=== PATIENT | female | born 1940 | race Caucasian/White ===

== ENCOUNTER 2017-06-29 04:52 | Emergency (ER) | payer OTHER ==
[~2017-06-29] VITALS: Ht 165.1 cm; Wt 66.0 kg
[~2017-06-29 04:52] MED LIST: ROPI1TAB PO; SIMV40TA2 PO
[2017-06-29 04:54] VITALS: BP 120/71; PULSE 79; TEMP 36.6; O2SAT 97; Ht 165.1 cm; Wt 66.0 kg
[2017-06-29] MEDS ORDERED: OXYCODONE/ACETAMINOPHEN 5-325 TAB PO ONE (05:15)
[2017-06-29] MEDS ORDERED: PERCOCET HOME PACK PO ONE (06:00)
--- NOTE | 2017-06-29 06:08 | EMERGENCY ROOM VISIT NOTE ---
History Report prepared by Joseph: Althea Kc Under the Supervision of: Dr. Annemarie Smith D.O. First contact with patient: 05:01 Chief Complaint: ANKLE PAIN Stated Complaint: TRIPPED- HURT LEFT ANKLE History of Present Illness The patient is a 76 year old female who presents to the Emergency Room with complaints of persistent left ankle pain starting 9512-8557 last evening. The patient was walking her 75 lb dog when the dog started running away from her. She was pulled forward and fell to the ground. She reports pain on the outer side of her foot and ankle and in the arch of her foot. The pain worsens with weight bearing. She has taken Tylenol arthritis and tramadol for her pain. She denies any head injury. She denies any pain in her knees, hands, elbows, right ankle, neck, abdomen, or hip. Source of History: patient Onset: [id number] yesterday evening Position: ankle (left) Quality: other (pain) Timing: other (persistent) Modifying Factors (Worsening): other (weight bearing) Associated Symptoms: No neck pain, No abdominal pain Note: Pt reports left foot pain. Pt denies knee pain, hand pain, elbow pain, right ankle pain, hip pain. Review of Systems See HPI for pertinent positives & negatives. A total of 10 systems reviewed and were otherwise negative. Past Medical & Surgical Medical Problems: (1) No Known Active Medical Problems (2) Shingles Family History Cancer Social History Smoking Status: Never Smoker Alcohol Use: none Marital Status: Housing Status: lives with significant other Current/Historical Medications Scheduled Ropinirole (Requip), 1 MG PO TID Simvastatin (Zocor), 40 MG PO QPM Allergies Coded Allergies: Penicillins (Verified Allergy, Intermediate, RASH, 06/29/17) Physical Exam Vital Signs Date Time Temp Pulse Resp B/P (MAP) Pulse Ox O2 Delivery O2 Flow Rate FiO2 06/29/17 04:54 36.6 79 20 120/71 97 Room Air Physical Exam HEENT: Head - normocephalic and atraumatic. Pupils are equal, round, and reactive to light. Extraocular eye muscles are intact and sclera are anicteric. Nose - moist nasal mucosa without evidence of trauma or discharge. Mouth - moist buccal mucosa with no trauma to the teeth or signs of malocclusion. Neck: The neck is supple and there is no pain to palpation over the posterior cervical spine and no obvious step-offs or deformities. There is no JVD or tracheal deviation. Chest: There are no signs of deformities, contusions or abrasions to the chest wall. There is no obvious crepitus or paradoxical chest rise. Heart: Regular, rate, and rhythm. There is a normal S1 and S2 with no murmurs, clicks, or gallops appreciated. Lungs: Clear to auscultation bilaterally with no wheezes, rales, or rhonchi. Abdomen: Soft, completely nontender, nondistended, with good bowel sounds. There is no sign of trauma such as contusions, abrasions or penetrations. There are no palpable pulsatile masses or hepatosplenomegaly. There is no guarding, rigidity, or rebound noted. Pelvis: Stable to rock and compression. Extremities: Edema over the left lateral malleolus, some discomfort with palpation over the 5th metatarsal, no pain over the left knee, no obvious signs of trauma. There are easily palpable peripheral pulses. Neuro: The patient is awake and alert and easily able to follow commands. Otherwise, neuro exam is unremarkable. Back: The entire thoracic, lumbar, and sacral spine were palpated. There are no obvious step-offs or deformities noted. There are no obvious signs of trauma such as contusions abrasions penetrations noted to the back. Medical Decision & Procedures ER Provider Diagnostic Interpretation: X-ray results as stated below per interpretation by me: Left foot X-ray: No 5th metatarsal fracture. Left ankle X-ray: No obvious ankle fracture. Medications Administered Medications (Trade) Dose Ordered Sig/[facility] Route Start Time Stop Time Status Last Admin Dose Admin Oxycodone/ Acetaminophen (Percocet 5-325mg Tab) 1 tab NOW ONCE PO 06/29/17 05:15 06/29/17 05:16 DC 06/29/17 05:22 1 TAB Oxycodone/ Acetaminophen (Percocet 5/ 325MG Home Pack) 1 homepack UD ONCE PO 06/29/17 06:00 06/29/17 06:01 DC 06/29/17 06:08 1 HOMEPACK Procedure Medications: Oxycodone/Acetaminophen 1 tab PO, Oxycodone/Acetaminophen 1 homepack PO. ED Course 0506: The patient was evaluated in room A2. A complete history and physical examination were performed. Nursing notes and previous electronic medical records were reviewed. 0515: Oxycodone/Acetaminophen 1 tab PO. The patient went for plain films of the left foot and ankle as described above. 0549: Upon reevaluation, the patient is doing well. She will get a gel splint and already has crutches in the room. I discussed findings and results with her. She verbalized agreement of the treatment plan. She was discharged home. 0600: Oxycodone/Acetaminophen 1 homepack PO. Medical Decision The patient is a 76 year old female who presents to the ED with ankle pain. Differential diagnosis includes ankle sprain, ankle fracture, 5th metatarsal fracture. The patient has pain over the left lateral malleolus. An x-ray, there is arthritic changes with a questionable chip fracture at the tip of the fibula. However, the patient has been walking on that foot so the fracture is unlikely. She was placed in a gel splint and will use her crutches at home. She was given a Percocet home pack and encouraged to follow-up with her PCP if the pain persists. Medication Reconcilliation Current Medication List: was personally reviewed by me Blood Pressure Screening Patient's blood pressure: Normal blood pressure Blood pressure disposition: Did not require urgent referral Impression Primary Impression: Left ankle sprain Scribe Attestation The scribe's documentation has been prepared under my direction and personally reviewed by me in its entirety. I confirm that the note above accurately reflects all work, treatment, procedures, and medical decision making performed by me. Departure Information Dispostion Home / Self-Care Referrals No Doctor, Assigned (PCP) Forms HOME CARE DOCUMENTATION FORM, IMPORTANT VISIT INFORMATION Patient Instructions Ankle Sprain, My [facility] Document [employer] Additional Instructions Rest with the left foot elevated and iced. Percocet - 1 tab. every 4 hours for pain. Use splint when up walking. Use crutches to avoid weight-bearing over next 1-2 days Follow up with PCP if pain persists Problem Qualifiers Primary Impression: Left ankle sprain Encounter type: initial encounter Involved ligament of ankle: deltoid ligament Qualified Codes: S93.422A - Sprain of deltoid ligament of left ankle , initial encounter
--- NOTE | 2017-06-29 07:05 | DIAGNOSTIC IMAGING REPORT ---
LEFT ANKLE MIN 3 VIEWS ROUTINE, LEFT FOOT MIN 3 VIEWS ROUTINE HISTORY: 76 years-old Female acute left foot and ankle pain status post twisting injury. Initial exam. COMPARISON: None available TECHNIQUE: 3 views of the left ankle and 3 views of the left foot FINDINGS: ANKLE: Bones are mildly demineralized without acute fracture or dislocation. There is moderate spurring about the calcaneus with mild spurring of the dorsal talonavicular joint. Small joint effusion is noted with mild circumferential soft tissue swelling about the ankle. FOOT: Bones are mildly demineralized. Moderate first MTP joint and multidigit interphalangeal degenerative changes are noted. No acute fracture or dislocation is identified. Prominent spurring is noted about the calcaneus. No stress fracture. There is mild dorsal forefoot soft tissue swelling. IMPRESSION: 1. Mild circumferential ankle and mild dorsal forefoot soft tissue swelling without acute fracture or dislocation. 2. Degenerative changes about the hindfoot and forefoot as above. 3. Mild bone demineralization. The above report was generated using voice recognition software. It may contain grammatical, syntax or spelling errors. Electronically signed by: Jorge Luis Garcia M.D. 06/29/2017 7:04 AM Dictated Date/Time: 06/29/2017 7:00 AM
== END 2017-06-29 06:10 | disposition home or self-care (01) ==
LOC: C.EDB 04:53 → C.EDA 06:10
DX: S93.422A Sprain of deltoid ligament of left ankle, initial encounter (principal); X50.1XXA Overexertion from prolonged static or awkward postures, initial encounter; Y93.K1 Activity, walking an animal; Y99.8 Other external cause status

== ENCOUNTER 2022-02-09 09:56 | Inpatient (IN) ==
--- NOTE | 2022-02-09 10:37 | Emergency Department Note ---
Impression & Plan BALLARD (dyspnea on exertion), Iron deficiency anemia, Fluid overload ED Provider Note Provider: Agustin Whitaker MD DATE OF SERVICE: 02/09/2022 CHIEF COMPLAINT: Fatigue, cough, referred by HISTORY OF PRESENT ILLNESS: Patient is a 81-year-old female history of restless leg syndrome, Aguila's palsy, gastric ulcers, and shingles presenting here today referred from the outpatient clinic. Patient states over the past week or so she has developed a bit of a cough and her 's been sick with similar as well. Minimally productive. Some fatigue. She states this has improved her last several days and she was at her doctor's office. Seen on Saturday and started on doxycycline. Had blood work and imaging that as well. Chest x-ray question of a little bit of pulmonary vascular congestion with findings concerning for significant new anemia. Patient denies any bleeding at this time or any bloody or black stools. Patient states she has recently been started on iron supplements. does report that the patient seems a bit pale. Reports some dyspnea on exertion such as with stairs although she states this may be a little bit better over the last day or 2. Denies any stomach upset or pain. Distant history of gastric ulcers but not currently on any stomach medication per her report. REVIEW OF SYSTEMS: A total of 10 review of systems was obtained and negative except as stated above in the HPI. PAST MEDICAL HISTORY: As noted above MEDICATIONS: Reviewed home medication list SOCIAL HISTORY: Lives at home, non-smoker PHYSICAL EXAM: GENERAL: alert and oriented in no acute distress on stretcher Head: normocephalic and atraumatic EYES: No injection, discharge or icterus. Slightly pale NECK: Trachea midline. LUNGS: Airway patent. No retractions. Breath sounds clear with good air entry bilaterally. HEART: Regular rate and rhythm. No chest wall tenderness ABDOMEN: Soft and non-tender, without guarding or rebound. No hepatosplenomegaly or masses Rectal: With patient permission and nurse Mary at bedside rectal exam completed with no bloody or melanotic stools. No large hemorrhoids appreciated. Hemoccult negative brown stool. SKIN: Acyanotic slightly pale warm, dry, without rashes EXTREMITIES: Without tenderness or deformity with trace pedal edema. NEUROLOGICAL: No focal deficits. No aphasia. No facial droop or slurred speech. Ambulatory. EK bpm normal sinus rhythm with left bundle branch block. QTc 473. Comparison to previous from May 11, 2016, similar CONTINUOUS CARDIAC MONITORING: was ordered and showed a heart rate of 70s-80s bpm in normal sinus rhythm with left bundle branch block Patient's laboratory studies and imaging reviewed. Differential includes Infection, dehydration, metabolic abnormality, hypo/hyperglycemia, electrolyte disturbance, anemia, hypoxia, cardiac sources, intracerebral event, toxicologic, neurologic, as well as other pathologies. IMPRESSION/MEDICAL DECISION MAKING: Review of the [facility] medical record indicate normal hemoglobin of 13 in 2015 on labs and 10.2 in 2016. No repeat hemoglobin since then other than recent last week which was 7.4. Denies bloody stools and relates a history of gastric ulcer. Not having ulcer symptoms. Hemoccult negative here on exam. Denies bruising or bleeding but does note she seems a bit pale. Outpatient chest xray with pulmonary vascular congestion reported from several days ago on the not as impressive here per our radiology report. Benign abdomen. Mild hypokalemia with a sodium of 3.2. Normal renal function. EKG appears unchanged but high-sensitivity troponin was completed. No bilirubin or AST ALT elevation noted with a borderline alk phos of 109. BUN not elevated. Doubt GI bleed. CBC returns with a white blood cell count of 13.2 and hemoglobin of 8.1. Patient does not appear septic. Not significantly hypoxic at this time. P latelet count 623 noted. Patient has been on doxycycline for 3 days in the outpatient setting but do not see clear evidence of pneumonia based on the imaging. High-sensitivity troponin is slightly elevated at 15. Question if this may be related to some of her anemia although anemia does appear somewhat improved today compared to outpatient several days ago. Patient without active chest pain. Low suspicion at this time this represents PE. Has been wearing compression stockings question of some component of heart. May be at play. BNP was ordered and will challenge with a small amount of Lasix. BMP later returned significantly elevated. Desaturates with ambulation in the room into the mid 80s. Given this discussed with the patient further evaluation and work-up here at the hospital. Hospitalist team was contacted. DIAGNOSIS: Iron deficiency anemia, dyspnea on exertion with hypoxia, fluid overload DISPOSITION: Hospitalist will evaluate Patient was agreeable with this plan. Past Med/Surg History Social History (Reviewed 06/01/21 @ 10:51 by FANY Erazo Smoking Status: Never smoker Preferred Language: Ugandan Feels Safe at Home: Yes Allergies Allergies Allergy/AdvReac Type Severity Reaction Status Date / Time Penicillins Allergy Intermediate RASH Verified 02/09/22 11:10 Home Meds Home Medications Medication Instructions Recorded Confirmed doxycycline monohydrate 100 mg 100 mg PO BID 02/09/22 02/09/22 tablet ferrous sulfate 325 mg (65 mg 325 mg PO Q2D 02/09/22 02/09/22 iron) tablet gabapentin 100 mg capsule 200 mg PO HS 02/09/22 02/09/22 gabapentin 300 mg capsule 300 mg PO HS 02/09/22 02/09/22 lisinopril 5 mg tablet 5 mg PO DAILY 02/09/22 02/09/22 ropinirole 3 mg tablet 3 mg PO TID 02/09/22 02/09/22 Results & Data (ED) Vital Signs Vital Signs - 24 hr 02/09/22 10:07 02/09/22 10:25 02/09/22 10:26 Temperature 36.3 C L Temperature Source Temporal Artery Scan Pulse Rate 73 81 Pulse Rate [Apical] Pulse Rate [Recovery] Pulse Rate from SpO2 Sensor 77 Pulse Rhythm Regular Pulse Strength Normal Respiratory Rate 20 30 H Respiratory Rate [Recovery] Respiratory Effort / Characteristics Non-Labored Spontaneous Respiratory Depth Normal Respiratory Pattern Regular Blood Pressure 170/77 H 164/68 H Blood Pressure [Right Arm] Blood Pressure Mean 108 100 Blood Pressure Mean [Right Arm] Blood Pressure Position Sitting Pulse Oximetry 95 94 Pulse Oximetry [Recovery] Oxygen Delivery Method Room Air Oxygen Flow Rate Sepsis Recent Fever Within 48 Hours No Sepsis New/Unexplained Change in Mental Status N/A Sepsis Action Taken by Nursing No Action Required 02/09/22 10:31 02/09/22 10:38 02/09/22 10:39 Temperature Temperature Source Pulse Rate 89 82 Pulse Rate [Apical] 78 Pulse Rate [Recovery] Pulse Rate from SpO2 Sensor 87 Pulse Rhythm Pulse Strength Respiratory Rate 24 20 20 Respiratory Rate [Recovery] Respiratory Effort / Characteristics Non-Labored Spontaneous Respiratory Depth Normal Respiratory Pattern Regular Blood Pressure Blood Pressure [Right Arm] 164/68 H Blood Pressure Mean Blood Pressure Mean [Right Arm] 100 Blood Pressure Position Pulse Oximetry 93 94 93 Pulse Oximetry [Recovery] Oxygen Delivery Method Room Air Room Air Oxygen Flow Rate Sepsis Recent Fever Within 48 Hours Sepsis New/Unexplained Change in Mental Status Sepsis Action Taken by Nursing 02/09/22 11:00 02/09/22 11:30 02/09/22 12:00 Temperature Temperature Source Pulse Rate 75 71 73 Pulse Rate [Apical] Pulse Rate [Recovery] Pulse Rate from SpO2 Sensor 74 Pulse Rhythm Pulse Strength Respiratory Rate 22 21 20 Respiratory Rate [Recovery] Respiratory Effort / Characteristics Respiratory Depth Respiratory Pattern Blood Pressure 167/69 H 168/70 H 180/72 H Blood Pressure [Right Arm] Blood Pressure Mean 101 102 108 Blood Pressure Mean [Right Arm] Blood Pressure Position Pulse Oximetry 98 Pulse Oximetry [Recovery] Oxygen Delivery Method Oxygen Flow Rate Sepsis Recent Fever Within 48 Hours Sepsis New/Unexplained Change in Mental Status Sepsis Action Taken by Nursing 02/09/22 12:24 02/09/22 12:30 02/09/22 13:00 Temperature Temperature Source Pulse Rate 73 80 Pulse Rate [Apical] Pulse Rate [Recovery] 77 Pulse Rate from SpO2 Sensor Pulse Rhythm Pulse Strength Respiratory Rate 18 22 Respiratory Rate [Recovery] 24 Respiratory Effort / Characteristics Respiratory Depth Respiratory Pattern Blood Pressure 177/83 H 189/88 H Blood Pressure [Right Arm] Blood Pressure Mean 114 121 Blood Pressure Mean [Right Arm] Blood Pressure Position Pulse Oximetry 97 Pulse Oximetry [Recovery] 87 L Oxygen Delivery Method Room Air Nasal Cannula Oxygen Flow Rate 1.5 Sepsis Recent Fever Within 48 Hours Sepsis New/Unexplained Change in Mental Status Sepsis Action Taken by Nursing 02/09/22 13:30 02/09/22 13:56 02/09/22 14:00 Temperature Temperature Source Pulse Rate 73 83 79 Pulse Rate [Apical] Pulse Rate [Recovery] Pulse Rate from SpO2 Sensor 83 Pulse Rhythm Pulse Strength Respiratory Rate 22 19 24 Respiratory Rate [Recovery] Respiratory Effort / Characteristics Respiratory Depth Respiratory Pattern Blood Pressure 190/78 H 198/83 H 191/85 H Blood Pressure [Right Arm] Blood Pressure Mean 115 121 120 Blood Pressure Mean [Right Arm] Blood Pressure Position Pulse Oximetry 97 Pulse Oximetry [Recovery] Oxygen Delivery Method Oxygen Flow Rate Sepsis Recent Fever Within 48 Hours Sepsis New/Unexplained Change in Mental Status Sepsis Action Taken by Nursing Laboratory Data Result diagrams: 02/09/22 10:18 02/09/22 10:18 Lab Results 02/09/22 02/09/22 02/09/22 Range/Units 10:18 10:18 10:18 WBC 13.25 H (4.8-10.8) K/uL RBC 3.89 L (4.2-5.4) M/uL Hgb 8.1 L (12.0-16.0) g/dL Hct 30.0 L (37-47) % MCV 77.1 L (80-100) fL MCH 20.8 L (25-34) pg MCHC 27.0 L (32-36) g/dL RDW Std Deviation 62.2 H (36.4-46.3) fL RDW Coeff of Francia 22.3 H (11.5-14.5) % Plt Count 623 H (130-400) K/uL MPV 8.9 (7.4-10.4) fL Immature Gran % (Auto) 0.4 % Neut % (Auto) 78.5 % Lymph % (Auto) 15.2 % [place] % (Auto) 4.6 % Eos % (Auto) 1.1 % Baso % (Auto) 0.2 % Neut # (Auto) 10.40 H (1.4-6.5) K/uL Lymph # (Auto) 2.01 (1.2-3.4) K/uL [place] # (Auto) 0.61 H (0.11-0.59) K/uL Eos # (Auto) 0.15 (0-0.5) K/uL Baso # (Auto) 0.03 (0-0.2) K/uL Immature Gran # (Auto) 0.05 H (0.00-0.02) K/uL Hypochromasia Present Anisocytosis Present Microcytosis Present PT (9.0-12.0) Seconds INR (0.9-1.1) Sodium (136-145) mmol/L Potassium (3.5-5.1) mmol/L Chloride (98-107) mmol/L Carbon Dioxide (21-32) mmol/L Anion Gap (3-11) BUN (6-23) mg/dl Creatinine (0.6-1.2) mg/dl Est Cr Clr Drug Dosing ml/min Est GFR ( Amer) ml/min Est GFR (Non-Af Amer) ml/min BUN/Creatinine Ratio (10-20) Glucose (70-99(Fasting)) mg/dl Calcium (8.5-10.1) mg/dl Magnesium (1.7-2.4) mg/dl Iron 13 L (35-150) mcg/dl Ferritin 17.7 (8-388) ng/ml Total Bilirubin (0.2-1.0) mg/dl AST (13-39) U/L ALT (7-52) U/L Alkaline Phosphatase (34-104) U/L Troponin I High Sens 15.7 H (0-14) pg/ml B-Natriuretic Peptide (0-100) pg/ml Total Protein (6.0-8.3) gm/dl Albumin (3.4-5.0) gm/dl Globulin (2.5-4.0) gm/dl Albumin/Globulin Ratio (0.9-2) TSH (0.300-4.500) uIu/ml Urine Color Urine Appearance (Clear) Urine pH (4.5-7.5) Ur Specific Artie (1.000-1.030) Urine Protein (Negative) Urine Glucose (UA) (Negative) Urine Ketones (Negative) Urine Blood (Negative) Urine Nitrite (Negative) Urine Bilirubin (Negative) Urine Urobilinogen (Negative) Ur Leukocyte Esterase (Negative) SARS-CoV-2, RNA, NAAT (NEGATIVE) Blood Type O Positive Blood Type Recheck Antibody Screen NEGATIVE Crossmatch 02/09/22 02/09/22 02/09/22 Range/Units 10:18 10:18 10:18 WBC (4.8-10.8) K/uL RBC (4.2-5.4) M/uL Hgb (12.0-16.0) g/dL Hct (37-47) % MCV (80-100) fL MCH (25-34) pg MCHC (32-36) g/dL RDW Std Deviation (36.4-46.3) fL RDW Coeff of Francia (11.5-14.5) % Plt Count (130-400) K/uL MPV (7.4-10.4) fL Immature Gran % (Auto) % Neut % (Auto) % Lymph % (Auto) % [place] % (Auto) % Eos % (Auto) % Baso % (Auto) % Neut # (Auto) (1.4-6.5) K/uL Lymph # (Auto) (1.2-3.4) K/uL [place] # (Auto) (0.11-0.59) K/uL Eos # (Auto) (0-0.5) K/uL Baso # (Auto) (0-0.2) K/uL Immature Gran # (Auto) (0.00-0.02) K/uL Hypochromasia Anisocytosis Microcytosis PT 11.2 (9.0-12.0) Seconds INR 1.1 (0.9-1.1) Sodium 138 (136-145) mmol/L Potassium 3.2 L (3.5-5.1) mmol/L Chloride 102 (98-107) mmol/L Carbon Dioxide 28 (21-32) mmol/L Anion Gap 8 (3-11) BUN 8 (6-23) mg/dl Creatinine 0.82 (0.6-1.2) mg/dl Est Cr Clr Drug Dosing 48.4 ml/min Est GFR ( Amer) 77.8 ml/min Est GFR (Non-Af Amer) 67.1 ml/min BUN/Creatinine Ratio 9.8 L (10-20) Glucose 131 H (70-99(Fasting)) mg/dl Calcium 9.0 (8.5-10.1) mg/dl Magnesium 1.8 (1.7-2.4) mg/dl Iron (35-150) mcg/dl Ferritin (8-388) ng/ml Total Bilirubin 0.4 (0.2-1.0) mg/dl AST 11 L (13-39) U/L ALT 6 L (7-52) U/L Alkaline Phosphatase 109 H (34-104) U/L Troponin I High Sens (0-14) pg/ml B-Natriuretic Peptide (0-100) pg/ml Total Protein 7.7 (6.0-8.3) gm/dl Albumin 4.0 (3.4-5.0) gm/dl Globulin 3.7 (2.5-4.0) gm/dl Albumin/Globulin Ratio 1.1 (0.9-2) TSH 1.519 (0.300-4.500) uIu/ml Urine Color Urine Appearance (Clear) Urine pH (4.5-7.5) Ur Specific Artie (1.000-1.030) Urine Protein (Negative) Urine Glucose (UA) (Negative) Urine Ketones (Negative) Urine Blood (Negative) Urine Nitrite (Negative) Urine Bilirubin (Negative) Urine Urobilinogen (Negative) Ur Leukocyte Esterase (Negative) SARS-CoV-2, RNA, NAAT (NEGATIVE) Blood Type Blood Type Recheck Antibody Screen Crossmatch 02/09/22 02/09/22 02/09/22 Range/Units 10:40 10:40 12:23 WBC (4.8-10.8) K/uL RBC (4.2-5.4) M/uL Hgb (12.0-16.0) g/dL Hct (37-47) % MCV (80-100) fL MCH (25-34) pg MCHC (32-36) g/dL RDW Std Deviation (36.4-46.3) fL RDW Coeff of Francia (11.5-14.5) % Plt Count (130-400) K/uL MPV (7.4-10.4) fL Immature Gran % (Auto) % Neut % (Auto) % Lymph % (Auto) % [place] % (Auto) % Eos % (Auto) % Baso % (Auto) % Neut # (Auto) (1.4-6.5) K/uL Lymph # (Auto) (1.2-3.4) K/uL [place] # (Auto) (0.11-0.59) K/uL Eos # (Auto) (0-0.5) K/uL Baso # (Auto) (0-0.2) K/uL Immature Gran # (Auto) (0.00-0.02) K/uL Hypochromasia Anisocytosis Microcytosis PT (9.0-12.0) Seconds INR (0.9-1.1) Sodium (136-145) mmol/L Potassium (3.5-5.1) mmol/L Chloride (98-107) mmol/L Carbon Dioxide (21-32) mmol/L Anion Gap (3-11) BUN (6-23) mg/dl Creatinine (0.6-1.2) mg/dl Est Cr Clr Drug Dosing ml/min Est GFR ( Amer) ml/min Est GFR (Non-Af Amer) ml/min BUN/Creatinine Ratio (10-20) Glucose (70-99(Fasting)) mg/dl Calcium (8.5-10.1) mg/dl Magnesium (1.7-2.4) mg/dl Iron (35-150) mcg/dl Ferritin (8-388) ng/ml Total Bilirubin (0.2-1.0) mg/dl AST (13-39) U/L ALT (7-52) U/L Alkaline Phosphatase (34-104) U/L Troponin I High Sens (0-14) pg/ml B-Natriuretic Peptide (0-100) pg/ml Total Protein (6.0-8.3) gm/dl Albumin (3.4-5.0) gm/dl Globulin (2.5-4.0) gm/dl Albumin/Globulin Ratio (0.9-2) TSH (0.300-4.500) uIu/ml Urine Color Yellow Urine Appearance Clear (Clear) Urine pH 6.5 (4.5-7.5) Ur Specific Artie 1.006 (1.000-1.030) Urine Protein Negative (Negative) Urine Glucose (UA) Negative (Negative) Urine Ketones Negative (Negative) Urine Blood Negative (Negative) Urine Nitrite Negative (Negative) Urine Bilirubin Negative (Negative) Urine Urobilinogen Negative (Negative) Ur Leukocyte Esterase Negative (Negative) SARS-CoV-2, RNA, NAAT (NEGATIVE) Blood Type Blood Type Recheck O Positive Antibody Screen Crossmatch See Detail 02/09/22 02/09/22 Range/Units 13:10 14:00 WBC (4.8-10.8) K/uL RBC (4.2-5.4) M/uL Hgb (12.0-16.0) g/dL Hct (37-47) % MCV (80-100) fL MCH (25-34) pg MCHC (32-36) g/dL RDW Std Deviation (36.4-46.3) fL RDW Coeff of Francia (11.5-14.5) % Plt Count (130-400) K/uL MPV (7.4-10.4) fL Immature Gran % (Auto) % Neut % (Auto) % Lymph % (Auto) % [place] % (Auto) % Eos % (Auto) % Baso % (Auto) % Neut # (Auto) (1.4-6.5) K/uL Lymph # (Auto) (1.2-3.4) K/uL [place] # (Auto) (0.11-0.59) K/uL Eos # (Auto) (0-0.5) K/uL Baso # (Auto) (0-0.2) K/uL Immature Gran # (Auto) (0.00-0.02) K/uL Hypochromasia Anisocytosis Microcytosis PT (9.0-12.0) Seconds INR (0.9-1.1) Sodium (136-145) mmol/L Potassium (3.5-5.1) mmol/L Chloride (98-107) mmol/L Carbon Dioxide (21-32) mmol/L Anion Gap (3-11) BUN (6-23) mg/dl Creatinine (0.6-1.2) mg/dl Est Cr Clr Drug Dosing ml/min Est GFR ( Amer) ml/min Est GFR (Non-Af Amer) ml/min BUN/Creatinine Ratio (10-20) Glucose (70-99(Fasting)) mg/dl Calcium (8.5-10.1) mg/dl Magnesium (1.7-2.4) mg/dl Iron (35-150) mcg/dl Ferritin (8-388) ng/ml Total Bilirubin (0.2-1.0) mg/dl AST (13-39) U/L ALT (7-52) U/L Alkaline Phosphatase (34-104) U/L Troponin I High Sens (0-14) pg/ml B-Natriuretic Peptide 454 H (0-100) pg/ml Total Protein (6.0-8.3) gm/dl Albumin (3.4-5.0) gm/dl Globulin (2.5-4.0) gm/dl Albumin/Globulin Ratio (0.9-2) TSH (0.300-4.500) uIu/ml Urine Color Urine Appearance (Clear) Urine pH (4.5-7.5) Ur Specific Artie (1.000-1.030) Urine Protein (Negative) Urine Glucose (UA) (Negative) Urine Ketones (Negative) Urine Blood (Negative) Urine Nitrite (Negative) Urine Bilirubin (Negative) Urine Urobilinogen (Negative) Ur Leukocyte Esterase (Negative) SARS-CoV-2, RNA, NAAT NEGATIVE (NEGATIVE) Blood Type Blood Type Recheck Antibody Screen Crossmatch Administered Medications Discontinued Medications Potassium Chloride (Potassium Chloride Crtab 20 Meq Tabcr) 20 meq PO NOW STA Stop: 02/09/22 11:18 Last Admin: 02/09/22 11:56 Dose: 20 meq Documented by: [id number] Imaging Data Radiologist's Impression: Chest X-Ray 02/09/22 10:26 SINGLE VIEW CHEST CLINICAL HISTORY: Generalized weakness. FINDINGS: An AP, portable, upright chest radiograph is compared to study dated 05/11/2016. The heart is top normal for projection noting atherosclerotic calcification of the thoracic aorta. There is a large hiatal hernia. Chronic residual thickening is similar to previous. Scarring/atelectasis is seen at the lung bases. No airspace consolidation or large pleural effusion is identified. No pneumothorax is seen. The skeletal structures are osteopenic. The bony thorax is grossly intact. IMPRESSION: 1. Chronic interstitial thickening with no acute cardiopulmonary abnormality. 2. Large hiatal hernia. ACT 112: Negative or not required by law. Electronically signed by: Armando Curry M.D. 02/09/2022 10:44 AM Discharge Plan Visit Data Chief Complaint: Abnormal Labs/Diagnostic Testing Stated Complaint: BLOOD LEVEL LOW, REF BY DOC ED Provider: Agustin Whitaker Discharge Problem: BALLARD (dyspnea on exertion), Iron deficiency anemia, Fluid overload Patient Disposition: Being Evaluated by Hospitalist Forms Stand Alone Forms: My [facility] [place] ETHERA Prescriptions Prescriptions: No Action ropinirole 3 mg tablet 3 mg PO TID RF: 0 doxycycline monohydrate 100 mg tablet 100 mg PO BID RF: 0 gabapentin 300 mg capsule 300 mg PO HS RF: 0 lisinopril 5 mg tablet 5 mg PO DAILY RF: 0 gabapentin 100 mg capsule 200 mg PO HS RF: 0 ferrous sulfate 325 mg (65 mg iron) Tablet 325 mg PO Q2D RF: 0 Referrals Referrals: Jolanta Fermin PA-C [Primary Care Provider] -
--- NOTE | 2022-02-09 10:47 | XRay Report ---
SINGLE VIEW CHEST CLINICAL HISTORY: Generalized weakness. FINDINGS: An AP, portable, upright chest radiograph is compared to study dated 05/11/2016. The heart i s top normal for projection noting atherosclerotic calcification of the thoracic aorta. There is a la rge hiatal hernia. Chronic residual thickening is similar to previous. Scarring/atelectasis is seen a t the lung bases. No airspace consolidation or large pleural effusion is identified. No pneumothorax is seen. The skeletal structures are osteopenic. The bony thorax is grossly intact. IMPRESSION: 1. Chronic interstitial thickening with no acute cardiopulmonary abnormality. 2. Large hiatal hernia. ACT 112: Negative or not required by law. Electronically signed by: Armando Curry M.D. 02/09/2022 10:44 AM
[2022-02-09 11:00] LABS: INR 1.1 (0.9-1.1); Prothrombin Time 11.2 Seconds (9.0-12.0)
[2022-02-09 11:02] LABS: Albumin Globulin Ratio 1.1 (0.9-2); BUN Creatinine Ratio 9.8 (10-20); Bilirubin,Total 0.4 mg/dl (0.2-1.0); Creatinine Clr Calc Pharmacy 48.4 ml/min; Est GFR (African American) 77.8 ml/min; Est GFR (Non-African American) 67.1 ml/min; Globulin 3.7 gm/dl (2.5-4.0); Magnesium 1.8 mg/dl (1.7-2.4); Potassium 3.2 mmol/L (3.5-5.1); Total Protein 7.7 gm/dl (6.0-8.3)
[2022-02-09 11:14] LABS: Anisocytosis Present; Basophils # (auto) 0.03 K/uL (0-0.2); Basophils % (auto) 0.2 %; Eosinophils # (auto) 0.15 K/uL (0-0.5); Eosinophils % (auto) 1.1 %; Hemoglobin 8.1 g/dL (12.0-16.0); Hypochromasia Present; Immature Granulocytes # (auto) 0.05 K/uL (0.00-0.02); Immature Granulocytes % (auto) 0.4 %; Lymphocytes # (auto) 2.01 K/uL (1.2-3.4); Lymphocytes % (auto) 15.2 %; Mean Corpuscular Hemoglobin 20.8 pg (25-34); Mean Corpuscular Volume 77.1 fL (80-100); Mean Platelet Volume 8.9 fL (7.4-10.4); Microcytosis Present; Monocytes # (auto) 0.61 K/uL (0.11-0.59); Monocytes % (auto) 4.6 %; Neutrophils % (auto) 78.5 %; Platelet Count 623 K/uL (130-400); RDW Coefficient of Variation 22.3 % (11.5-14.5); RDW Standard Deviation 62.2 fL (36.4-46.3); Red Blood Count 3.89 M/uL (4.2-5.4); White Blood Count 13.25 K/uL (4.8-10.8)
[2022-02-09] MEDS ORDERED: POTASSIUM CHLORIDE CRTAB 20 MEQ TABCR PO STA (11:17)
[2022-02-09 11:36] LABS: Troponin I High Sensitivity 15.7 pg/ml (0-14)
[2022-02-09 11:51] LABS: Ferritin 17.7 ng/ml (8-388)
[2022-02-09 12:30] LABS: Appearance Urine Clear (Clear); Bilirubin Urine Negative (Negative); Blood Urine Negative (Negative); Color Urine Yellow; Glucose Urine UA Negative (Negative); Ketones Urine Negative (Negative); Leukocyte Esterase Urine Negative (Negative); Nitrite Urine Negative (Negative); Protein Urine Negative (Negative); Specific Gravity Urine 1.006 (1.000-1.030); Urobilinogen Urine Negative (Negative); pH Urine 6.5 (4.5-7.5)
[2022-02-09] MEDS ORDERED: FUROSEMIDE INJ 20 MG/2 ML VIAL IV ONE ×2 (12:51→17:18)
--- NOTE | 2022-02-09 13:41 | History & Physical Report ---
Date of Service February 09, 2022 Assessment & Plan (1) Iron deficiency anemia: Plan: Patient is 81-year-old female with PMH RLS, dyslipidemia, HTN, LBBB presented to ER from outpatient clinic for abnormal labs -anemia and SOB. Outpatient labs 01/23/2022 that showed low iron, low transferrin saturation and low ferritin. She was started on iron supplement every other day. 02/06/2022 outpatient labs WBC: 12, Hgb: 7.4, CXR: Showed pulmonary vascular congestion, bibasilar atelectasis. Patient was started on doxycycline. In ER patient afebrile, BP 170/77, P: 73, 95% on room air. Hgb: 8.1 (was 7.4 on 02/06/2022 and 13 in 2014), iron and ferritin levels low. Reported negative Hemoccult stool in ER. Patient denies any melena, hematochezia, vaginal bleeding. B12, folate pending Type and cross PRBC and hold Monitor H&H Dose IV iron Hemoccult stool Pending to consider GI consult (2) BALLARD (dyspnea on exertion): Plan: CXR: Chronic interstitial thickening with no acute cardiopulmonary abnormality. Negative SARS-CoV-2 NAAT. WBC: 13. Negative procalcitonin. EKG without acute changes. In ER sats dropped to 87% on RA with ambulation D-dimer elevated. BNP: 454 CTA chest pending to rule out PE In ER was given Lasix 40 mg IV Echo supplemental oxygen prn (3) Cough: Plan: Reports nonproductive cough for approximately 2 weeks. Started lisinopril prior to cough onset Cough may be secondary to volume overload vs lisinopril related cough vs infectious etiology Influenza, RSV pending Hold lisinopril CTA chest pending Continue doxycycline (4) Hypokalemia: Plan: K: 3.2 In ER given 20 meq KCl p.o. Replace and monitor (5) Elevated troponin: Plan: Troponin: 16. EKG without acute ST changes Chest pain Trend troponin Echo EKG in a.m. (6) HTN (hypertension): Plan: Patient hypertensive in ER We will hold patient's lisinopril secondary to cough that started after initiation of lisinopril Losartan 50 mg daily Labetalol as needed (7) Dyslipidemia: Plan: Reports has not been taking simvastatin (8) RLS (restless legs syndrome): Plan: Continue ropinirole, gabapentin (9) LBBB (left bundle branch block): Plan: Chronic LBBB DVT Prophylaxis SCDs secondary to anemia Full Code as per discussion with pt Follows with Dr Jolanta Fermin PA-C for routine care Pt was seen and care coordinated with Dr Rich. See addendum History of Present Illness Chief Complaint: Abnormal labs Primary Care Provider: Jolanta Fermin PA-C Patient is 81-year-old female with PMH RLS, dyslipidemia, HTN, LBBB presented to ER from outpatient clinic for abnormal labs. Patient reports has been having cough for approximately 2 weeks. She reports is unable to expel anything with cough. She states she thought she was getting an URI at onset of cough as she also was having some shortness of breath. She reports her has had a cough and cold symptoms for a couple of weeks. Patient denies any known fever, chills. She states thought maybe her nose was a little congested but denies rhinorrhea, sore throat. Feeling SOB with exertion. Reports chronically sleeps inclined as she feels dizzy with lying completely supine. Unaware of orthopnea. Patient had outpatient labs 01/23/2022 that showed low iron, low transferrin saturation and low ferritin. She was started on iron supplement every other day. She was started on lisinopril for HTN. Patient seen in clinic 02/06/2022 for dizziness, shortness of breath, nonproductive cough. Labs were drawn and had WBC: 12, Hgb: 7.4, -19 test, chest x-ray showed pulmonary vascular congestion, bibasilar atelectasis. Patient was started on doxycycline. Patient seen in clinic 02/09/2022 for follow-up and was referred to ER for further evaluation. Denies fever/chills, diaphoresis, N/V/D/C, CHICAS, dizziness, syncope, vision changes, neck pain, CP, choking, otalgia, abdominal pain, paresthesias, extremity weakness, extremity edema, rashes, urinary symptoms, melena, hematochezia. Allergies Allergy/AdvReac Type Severity Reaction Status Date / Time Penicillins Allergy Intermediate RASH Verified 02/09/22 11:10 Home Medications Medication Instructions Recorded Confirmed Type doxycycline monohydrate 100 mg 100 mg PO BID 02/09/22 02/09/22 History tablet ferrous sulfate 325 mg (65 mg 325 mg PO Q2D 02/09/22 02/09/22 History iron) tablet gabapentin 100 mg capsule 200 mg PO HS 02/09/22 02/09/22 History gabapentin 300 mg capsule 300 mg PO HS 02/09/22 02/09/22 History lisinopril 5 mg tablet 5 mg PO DAILY 02/09/22 02/09/22 History ropinirole 3 mg tablet 3 mg PO TID 02/09/22 02/09/22 History Past Med/Surg History Medical History (Updated 02/09/22 @ 20:38 by Lynn Morel PA-C) Dyslipidemia HTN (hypertension) LBBB (left bundle branch block) RLS (restless legs syndrome) Surgical History (Updated 02/09/22 @ 20:20 by Lynn Morel PA-C) History of colonoscopy Family History (Updated 02/09/22 @ 20:21 by Lynn Morel PA-C) Other Cancer Stroke Social History (Updated 02/09/22 @ 20:21 by Lynn Morel PA-C) Smoking Status: Never smoker Hx Alcohol Use: Yes Alcohol type: wine Alcohol Intake Frequency: Monthly or Less Hx Substance Use: No Preferred Language: Slovak Press Operator Assistant Required: No Beliefs That Will Affect Care: None Current Living Situation: Spouse Other Information That Helps Us Care for You: No Feels Safe at Home: Yes Safety Concerns: Feels Safe At This Time Assistive Devices: Denture - Upper, Denture - Lower and Glasses Review of Systems Review of Systems: All systems reviewed & are unremarkable except as noted in HPI & below Physical Exam Physical Exam: General: no distress, WDWN Head: normocephalic, atraumatic Eyes: PERRL, EOM's intact, conjunctiva pale, anicteric ENT: normal inspection external ears, nose, mucous membranes moist Neck: supple, trachea midline Lungs: no respiratory distress, diminished breath sounds, +rales bases bilaterally CV: RRR, no murmur, no JVD, trace edema Abd: normal BS, soft, non-tender Ext: no cyanosis, no calf tenderness Neuro: A&O x 3, no focal deficits noted, normal affect Skin: pale, warm, dry Results & Data Results & Data ([facility]) Vital Signs (Past 12 Hours) Vital Signs Temp Pulse Pulse Pulse Resp Resp BP 02/09/22 12:30 73 18 177/83 H 02/09/22 12:24 77 24 02/09/22 12:00 73 20 180/72 H 02/09/22 11:30 71 21 168/70 H 02/09/22 11:00 75 22 167/69 H 02/09/22 10:39 78 20 02/09/22 10:38 82 20 02/09/22 10:31 89 24 02/09/22 10:26 81 30 H 02/09/22 10:25 164/68 H 02/09/22 10:07 36.3 C L 73 20 170/77 H BP Pulse Ox Pulse Ox 02/09/22 12:30 97 02/09/22 12:24 87 L 02/09/22 12:00 98 02/09/22 11:30 02/09/22 11:00 02/09/22 10:39 164/68 H 93 02/09/22 10:38 94 02/09/22 10:31 93 02/09/22 10:26 94 02/09/22 10:25 02/09/22 10:07 95 Laboratory Results Short CBC 02/09/22 Range/Units 10:18 WBC 13.25 H (4.8-10.8) K/uL Hgb 8.1 L (12.0-16.0) g/dL Hct 30.0 L (37-47) % Plt Count 623 H (130-400) K/uL BMP 02/09/22 10:18 Sodium 138 Potassium 3.2 L Chloride 102 Carbon Dioxide 28 BUN 8 Creatinine 0.82 Glucose 131 H Calcium 9.0 Liver Function 02/09/22 Range/Units 10:18 Total Bilirubin 0.4 (0.2-1.0) mg/dl AST 11 L (13-39) U/L ALT 6 L (7-52) U/L Alkaline Phosphatase 109 H (34-104) U/L Albumin 4.0 (3.4-5.0) gm/dl Urine 02/09/22 Range/Units 12:23 Urine Color Yellow Urine Appearance Clear (Clear) Urine pH 6.5 (4.5-7.5) Ur Specific [place] 1.006 (1.000-1.030) Urine Protein Negative (Negative) Urine Glucose (UA) Negative (Negative) Diagnostic Findings Chest X-Ray 02/09/22 10:26 SINGLE VIEW CHEST CLINICAL HISTORY: Generalized weakness. FINDINGS: An AP, portable, upright chest radiograph is compared to study dated 05/11/2016. The heart is top normal for projection noting atherosclerotic calcification of the thoracic aorta. There is a large hiatal hernia. Chronic residual thickening is similar to previous. Scarring/atelectasis is seen at the lung bases. No airspace consolidation or large pleural effusion is identified. No pneumothorax is seen. The skeletal structures are osteopenic. The bony thorax is grossly intact. IMPRESSION: 1. Chronic interstitial thickening with no acute cardiopulmonary abnormality. 2. Large hiatal hernia. ACT 112: Negative or not required by law. Electronically signed by: Armando Curry M.D. 02/09/2022 10:44 AM ECG Rate (beats per minute): 75 Rhythm: sinus rhythm Findings: + LBBB Code Status & VTE Plan VTE Prophylaxis Plan VTE Prophylaxis will be ordered: Yes Supervising Physician Co-Signing Physician Notes Patient is an 81-year-old female with history of hypertension, left bundle branch block, restless leg syndrome and other medical problems presents with history of abnormal labs, cough since 2 weeks duration associated with some shortness of breath on exertion. Reports orthopnea secondary to dizziness. She was recently diagnosed to have iron deficiency anemia and was started on iron supplements. Also started on lisinopril 2 weeks ago for hypertension she was found to have significant drop in hemoglobin when blood work done as outpatient and was so sent to ED for further evaluation. Patient denies any bleeding issues. Please review HPI for complete details of presentation. Blood work suggestive of leukocytosis 13 K, hemoglobin 8.1, MCV 77, platelets 620 3K, potassium 3.2, magnesium 1.8, troponin 15.7, glucose 131, elevated D-dimer, vitamin B12 76, normal folate levels, BNP 454. She was found to be hypoxic in the 80s while in ED and was placed on supplemental oxygen. Chest x-ray showed chronic interstitial thickening with no acute cardiopulmonary abnormality. CTA currently pending. Blood pressure elevated in ED suggestive of hypertensive urgency. Fecal occult in ED negative. On exam patient is moderately built and nourished, no apparent distress, normocephalic atraumatic, EOMI, decreased garry th sounds, basilar crackles, S1-S2, no murmur, trace pedal edema, abdomen soft, nontender, normal bowel sounds, alert, awake, oriented, grossly no focal deficits. Patient is admitted for management of symptomatic anemia, hypoxia cannot rule out PE, hypokalemia, hypertensive urgency. Anemia likely multifactorial secondary to iron deficiency, vitamin B12 deficiency. Also to rule out acute bleeding. Will give IV iron. Type and cross and transfuse PRBCs as needed. Will get CTA to rule out PE and other infectious causes. Given vitamin B12. Hold lisinopril likely contributing to cough. Will start on losartan for blood pressure control. Also check influenza, RSV screen. May need additional antihypertensives with better blood pressure control. IV labetalol as needed. Trend cardiac enzymes. Received a dose of IV Lasix. Check resting echo. I personally reviewed the record. Patient is interviewed and examined at bedside. Patient's care is coordinated with Lynn Morel PA-C. Please refer to the documentation above for details of patient's presentation and for discussion of other issues. (1) Iron deficiency anemia Iron deficiency anemia type: unspecified iron deficiency Qualified Code(s): D50.9 - Iron deficiency anemia, unspecified
[2022-02-09] MEDS ORDERED: SODIUM CHLORIDE 0.9% 250 ML IV PRN (14:05)
[2022-02-09] MEDS ORDERED: LABETALOL HCL IV 5 MG/ML 20ML IV PRN (14:15)
[2022-02-09] MEDS ORDERED: LOSARTAN POTASSIUM 50 MG TAB PO SCH (14:15)
[2022-02-09] MEDS ORDERED: LOSARTAN POTASSIUM 50 MG TAB PO ONE (14:16)
[2022-02-09 15:03] LABS: D Dimer 850 ug/L FEU (0-500)
[2022-02-09] MEDS ORDERED: POTASSIUM CHLORIDE CRTAB 20 MEQ TABCR PO ONE (16:00)
[2022-02-09] MEDS ORDERED: ACETAMINOPHEN 325 MG TAB PO PRN (16:45)
[2022-02-09] MEDS ORDERED: POLYETHYLENE (MIRALAX) 17 GM PACK PO PRN (16:45)
[2022-02-09] MEDS: ONDANSETRON INJ 2 MG/ML 2 ML VIAL IV PRN ×2 (17:47→23:08)
[2022-02-09] MEDS ORDERED: IRON SUCROSE 200 MG in 0.9 % SODIUM CHLORIDE 100 ML IV ONE (19:00)
[2022-02-09] MEDS: GABAPENTIN 300 MG CAP PO SCH (20:06)
[2022-02-09] MEDS: rOPINIRole HCL 1 MG TABLET PO SCH (20:06)
[2022-02-09] MEDS: GABAPENTIN 100 MG CAP PO SCH (20:06)
[2022-02-09] MEDS: DOXYCYCLINE HYCLATE 100 MG CAP PO SCH (20:06)
[2022-02-09] MEDS ORDERED: OPTIRAY 320 125ml IV ONE (20:38)
[2022-02-09] MEDS ORDERED: CYANOCOBALAMIN 1000 MCG/ML VIAL IM ONE (21:00)
--- NOTE | 2022-02-09 21:26 | CT Scan Report ---
CT angio chest PE protocol CT DOSE: 233.17 mGy.cm HISTORY: 81 years-old Female with PE. Acute shortness of breath with chest pain TECHNIQUE: Multiple CTA images of the chest were obtained after the intravenous administration of 120 ml Optiray. Coronal and sagittal MIPS were obtained from the axial data set and were submitted for review. All measurements were obtained according to NASCET criteria. A dose lowering technique was u tilized adhering to the principles of ALARA. COMPARISON: Chest radiograph of same day FINDINGS: CTA: Moderate cardiomegaly. Moderate coronary artery calcifications. Atherosclerosis of the thoracic aorta without aneurysm or dissection. The pulmonary artery is dilated, 3.7 cm. No pulmonary emboli identif ied. CT CHEST: Subcentimeter right-sided thyroid nodule. Borderline enlarged mediastinal and hilar lymph nodes measu re up to 9 mm, favored to be reactive. No pneumothorax, or pleural effusion. Bronchial wall thickenin g with mild right basilar mucous plugging. Patchy bilateral groundglass densities with ill-defined co nsolidative opacities of the apical right upper lobe. Mild intralobular septal thickening. Diffuse esophageal wall thickening. Large hiatal hernia. Unremarkable soft tissues. Subacute to chron ic appearing bilateral rib fractures. IMPRESSION: 1. Cardiomegaly with evidence of pulmonary artery hypertension. No pulmonary emboli. 2. Patchy bilateral groundglass densities with ill-defined consolidative opacities of the right upper lobe. Findings are suggestive of a nonspecific infectious or inflammatory pneumonitis. Mild pulmonar y edema would be difficult to exclude. 3. No pleural effusion. 4. Bronchial wall thickening with mucous plugging. 5. Large hiatal hernia. ACT 112: Negative or not required by law. The above report was generated using voice recognition software. It may contain grammatical, syntax o r spelling errors. Electronically signed by: Jas Garcia M.D. 02/09/2022 9:23 PM
--- NOTE | 2022-02-10 06:42 | Electrocardiogram Report ---
Test Reason : Blood Pressure : / mmHG Vent. Rate : 075 BPM Atrial Rate : 075 BPM P-R Int : 164 ms QRS Dur : 146 ms QT Int : 424 ms P-R-T Axes : 029 -25 125 degrees QTc Int : 473 ms Normal sinus rhythm Left bundle branch block Abnormal ECG When compared with ECG of 11-MAY-2016 18:24, No significant change was found Confirmed by Doug Guevara ([id number]) on 02/10/2022 6:42:08 AM Referred By: Radha Che Confirmed By:Doug Guevara
[2022-02-10 07:35] LABS: BUN Creatinine Ratio 10.8 (10-20); Calcium 8.6 mg/dl (8.5-10.1); Creatinine Clr Calc Pharmacy 42.7 ml/min; Est GFR (African American) 66.8 ml/min; Est GFR (Non-African American) 57.6 ml/min; Potassium 3.8 mmol/L (3.5-5.1)
[2022-02-10 07:37] LABS: Hematocrit (blood only) 28.7 % (37-47); Hemoglobin 7.6 g/dL (12.0-16.0); Mean Corpuscular Hemoglobin 20.8 pg (25-34); Mean Corpuscular Hgb Conc 26.5 g/dL (32-36); Mean Corpuscular Volume 78.4 fL (80-100); Mean Platelet Volume 8.7 fL (7.4-10.4); Platelet Count 541 K/uL (130-400); RDW Coefficient of Variation 22.1 % (11.5-14.5); RDW Standard Deviation 63.3 fL (36.4-46.3); Red Blood Count 3.66 M/uL (4.2-5.4); White Blood Count 8.39 K/uL (4.8-10.8)
[2022-02-10 07:38] LABS: Acanthocytes 1+; Anisocytosis Present; Basophils # (auto) 0.01 K/uL (0-0.2); Basophils % (auto) 0.1 %; Eosinophils # (auto) 0.19 K/uL (0-0.5); Eosinophils % (auto) 2.3 %; Hypochromasia Present; Immature Granulocytes # (auto) 0.03 K/uL (0.00-0.02); Immature Granulocytes % (auto) 0.4 %; Lymphocytes # (auto) 2.08 K/uL (1.2-3.4); Lymphocytes % (auto) 24.8 %; Microcytosis Present; Monocytes # (auto) 0.44 K/uL (0.11-0.59); Monocytes % (auto) 5.2 %; Neutrophils # (auto) 5.64 K/uL (1.4-6.5); Neutrophils % (auto) 67.2 %; Polychromasia 1+
[2022-02-10] MEDS: rOPINIRole HCL 1 MG TABLET PO SCH ×3 (08:00→20:48)
[2022-02-10] MEDS: DOXYCYCLINE HYCLATE 100 MG CAP PO SCH ×2 (08:00→20:48)
[2022-02-10] MEDS ORDERED: FERROUS SULFATE 325 MG TAB PO SCH (09:00)
[2022-02-10] MEDS ORDERED: LOSARTAN POTASSIUM 50 MG TAB PO SCH (09:00)
[2022-02-10 09:23] LABS: Influenza A virus by PCR Negative (Negative); Influenza B virus by PCR Negative (Negative); RSV by PCR Negative (Negative)
[2022-02-10] MEDS ORDERED: PROMETHAZINE HCL 12.5 MG in SODIUM CHLORIDE 0.9% 50 ML IV PRN (09:32)
--- NOTE | 2022-02-10 09:52 | Hospitalist Progress Note ---
Date of Service February 10, 2022 Assessment & Plan (1) Community acquired pneumonia: (2) Iron deficiency anemia: (3) Elevated troponin: (4) BALLARD (dyspnea on exertion): (5) Cough: Plan: 81-year-old female with PMH RLS, dyslipidemia, HTN, LBBB presented to ER from outpatient clinic for abnormal labs -anemia and SOB. Outpatient labs 01/23/2022 that showed low iron, low transferrin saturation and low ferritin. She was started on iron supplement every other day. 02/06/2022 outpatient labs WBC: 12, Hgb: 7.4, CXR: Showed pulmonary vascular congestion, bibasilar atelectasis. Patient was started on doxycycline. In ER patient afebrile, BP 170/77, P: 73, 95% on room air. Hgb: 8.1 (was 7.4 on 02/06/2022 and 13 in 2014), iron and ferritin levels low. Reported negative Hemoccult stool in ER. Patient denies any melena, hematochezia, vaginal bleeding. COVID, flu and RSV negative WBC on admission 13K CTA - No PE, patchy bilateral ground glass densities with ill defined consolidative opacities in RUL, bronchial wall thickening with mucous plugging Though trop was minimally elevated, EKG showed old LBBB Ox sats dropped to 87% in ER Reviewed Echo with [employer] Analyst. Echo showed normal EF 60-65%, mod conc LVH, LA mod dilated, G1 DD, trace MR, TR Based on history and findings, patient has acute respiratory failure with hypoxia due to pneumonia. Less likely due to cardiac cause Levofloxacin added to doxycycline patient is on Hb is 7.6. (last Hb outpatient was 13 in 2014) Lab work done by PCP on 02/06/22 showed iron deficiency anemia Got IV iron Will give 1 PRBC with lasix Wean oxygen as tolerated Vit B12 deficiency (6) Hypokalemia: Plan: On admission K: 3.2 Was repleted. K is 3.8 today (7) HTN (hypertension): Plan: Patient hypertensive in ER on presentation Continue home lisinopril (8) Dyslipidemia: Plan: Reports has not been taking simvastatin (9) RLS (restless legs syndrome): Plan: Continue ropinirole, gabapentin (10) LBBB (left bundle branch block): Plan: Chronic LBBB DVT Prophylaxis SCDs secondary to anemia Admission and Anticipated Discharge Date Admission Date: February 09, 2022 Subjective Patient seen and examined Reported she started having congestion almost 2 weeks ago This progressed to cough and more recently shortness of breath. Reports some exertional dyspnea Denied any fevers, chills, nausea, vomiting Reported positive sick contact with with respiratory symptoms for weeks Reports chronic dependent leg edema usually on standing or end of day Denied orthopnea, PND Denied abd pain, diarrhea, constipation Physical Exam Constitutional: + well hydrated; no acute distress Eyes: PERRL, conjunctivae normal, anicteric sclerae ENMT: external ear and nose normal, oropharynx normal Respiratory: Not in respiratory distress, Diminished breath sounds, +rales right lung Cardiovascular: Rate/Rhythm: regular rate and regular rhythm S1 S2 Gastrointestinal (Abdomen): normal bowel sounds, soft, nontender, no hepatosplenomegaly Musculoskeletal: no cyanosis or clubbing, extremities motor strength 5/5 No pedal edema Neurologic: PERRL, EOMI, accommodation nl, no face palsy, no dysarthria Psychiatric: A+Ox3, euthymic affect Results & Data Results & Data ([facility]) Vital Signs (Past 12 Hours) Vital Signs Temp Pulse Pulse Pulse Resp BP BP 02/10/22 07:14 36.9 C 72 18 156/73 H 02/10/22 07:11 67 02/10/22 04:15 36.6 C 63 18 124/68 02/09/22 22:47 36.6 C 70 18 126/74 02/09/22 22:00 67 Pulse Ox 02/10/22 07:14 94 02/10/22 07:11 02/10/22 04:15 93 02/09/22 22:47 91 02/09/22 22:00 Laboratory Results Abnormal lab results 02/09/22 02/09/22 02/09/22 Range/Units 10:40 17:17 17:17 RBC (4.2-5.4) M/uL Hgb (12.0-16.0) g/dL Hct (37-47) % MCV (80-100) fL MCH (25-34) pg MCHC (32-36) g/dL RDW Std Deviation (36.4-46.3) fL RDW Coeff of Francia (11.5-14.5) % Plt Count (130-400) K/uL Immature Gran # (Auto) (0.00-0.02) K/uL Glucose (70-99(Fasting)) mg/dl Troponin I High Sens 16.3 H (0-14) pg/ml Vitamin B12 76 L (180-914) pg/ml Crossmatch See Detail 02/10/22 02/10/22 02/10/22 Range/Units 00:16 06:59 06:59 RBC 3.66 L (4.2-5.4) M/uL Hgb 7.6 L (12.0-16.0) g/dL Hct 28.7 L (37-47) % MCV 78.4 L (80-100) fL MCH 20.8 L (25-34) pg MCHC 26.5 L (32-36) g/dL RDW Std Deviation 63.3 H (36.4-46.3) fL RDW Coeff of Francia 22.1 H (11.5-14.5) % Plt Count 541 H (130-400) K/uL Immature Gran # (Auto) 0.03 H (0.00-0.02) K/uL Glucose 132 H (70-99(Fasting)) mg/dl Troponin I High Sens 15.4 H (0-14) pg/ml Vitamin B12 (180-914) pg/ml Crossmatch (1) Iron deficiency anemia Iron deficiency anemia type: unspecified iron deficiency Qualified Code(s): D50.9 - Iron deficiency anemia, unspecified
[2022-02-10] MEDS ORDERED: levoFLOXacin 750 MG TAB PO SCH (11:00)
[2022-02-10] MEDS ORDERED: SODIUM CHLORIDE 0.9% 250 ML IV PRN (13:06)
[2022-02-10] MEDS ORDERED: FUROSEMIDE INJ 20 MG/2 ML VIAL IV ONE (13:06)
[2022-02-10] MEDS: CYANOCOBALAMIN (B-12) 500 MCG TABLET PO SCH (16:12)
[2022-02-10] MEDS: FOLIC ACID 1 MG TAB PO SCH (16:12)
[2022-02-10] MEDS: GABAPENTIN 300 MG CAP PO SCH (20:48)
[2022-02-10] MEDS: GABAPENTIN 100 MG CAP PO SCH (20:48)
--- NOTE | 2022-02-11 07:39 | Electrocardiogram Report ---
Test Reason : Blood Pressure : / mmHG Vent. Rate : 073 BPM Atrial Rate : 073 BPM P-R Int : 162 ms QRS Dur : 136 ms QT Int : 430 ms P-R-T Axes : 025 -17 141 degrees QTc Int : 473 ms Normal sinus rhythm Left bundle branch block Abnormal ECG When compared with ECG of 09-FEB-2022 10:46, No significant change was found Confirmed by Sidney Quintero ([id number]) on 02/11/2022 7:39:37 AM Referred By: Radha Che Confirmed By:Christiano Quintero
[2022-02-11] MEDS: FOLIC ACID 1 MG TAB PO SCH (08:24)
[2022-02-11] MEDS: rOPINIRole HCL 1 MG TABLET PO SCH (08:24)
[2022-02-11] MEDS: DOXYCYCLINE HYCLATE 100 MG CAP PO SCH (08:24)
[2022-02-11] MEDS: CYANOCOBALAMIN (B-12) 500 MCG TABLET PO SCH (08:24)
[2022-02-11 08:59] LABS: Hematocrit (blood only) 33.4 % (37-47); Hemoglobin 9.2 g/dL (12.0-16.0); Mean Corpuscular Hgb Conc 27.5 g/dL (32-36); Mean Corpuscular Volume 79.7 fL (80-100); Mean Platelet Volume 9.3 fL (7.4-10.4); Platelet Count 652 K/uL (130-400); RDW Coefficient of Variation 21.6 % (11.5-14.5); RDW Standard Deviation 62.3 fL (36.4-46.3); Red Blood Count 4.19 M/uL (4.2-5.4)
[2022-02-11] MEDS ORDERED: lisinopril 5 MG TAB PO SCH (09:00)
[2022-02-11 09:59] LABS: BUN Creatinine Ratio 12.4 (10-20); Calcium 9.1 mg/dl (8.5-10.1); Creatinine Clr Calc Pharmacy 40.9 ml/min; Est GFR (African American) 63.5 ml/min; Est GFR (Non-African American) 54.8 ml/min; Magnesium 1.8 mg/dl (1.7-2.4); Potassium 4.1 mmol/L (3.5-5.1)
--- NOTE | 2022-02-11 10:28 | Discharge Summary ---
Date of Service February 11, 2022 Admission HPI Per Admitting Provider Patient is 81-year-old female with PMH RLS, dyslipidemia, HTN, LBBB presented to ER from outpatient clinic for abnormal labs. Patient reports has been having cough for approximately 2 weeks. She reports is unable to expel anything with cough. She states she thought she was getting an URI at onset of cough as she also was having some shortness of breath. She reports her has had a cough and cold symptoms for a couple of weeks. Patient denies any known fever, chills. She states thought maybe her nose was a little congested but denies rhinorrhea, sore throat. Feeling SOB with exertion. Reports chronically sleeps inclined as she feels dizzy with lying completely supine. Unaware of orthopnea. Patient had outpatient labs 01/23/2022 that showed low iron, low transferrin saturation and low ferritin. She was started on iron supplement every other day. She was started on lisinopril for HTN. Patient seen in clinic 02/06/2022 for dizziness, shortness of breath, nonproductive cough. Labs were drawn and had WBC: 12, Hgb: 7.4, -19 test, chest x-ray showed pulmonary vascular congestion, bibasilar atelectasis. Patient was started on doxycycline. Patient seen in clinic 02/09/2022 for follow-up and was referred to ER for further evaluation. Denies fever/chills, diaphoresis, N/V/D/C, CHICAS, dizziness, syncope, vision changes, neck pain, CP, choking, otalgia, abdominal pain, paresthesias, extremity weakness, extremity edema, rashes, urinary symptoms, melena, hematochezia. Admission Exam Per Admitting Provider General: no distress, WDWN Head: normocephalic, atraumatic Eyes: PERRL, EOM's intact, conjunctiva pale, anicteric ENT: normal inspection external ears, nose, mucous membranes moist Neck: supple, trachea midline Lungs: no respiratory distress, diminished breath sounds, +rales bases bilaterally CV: RRR, no murmur, no JVD, trace edema Abd: normal BS, soft, non-tender Ext: no cyanosis, no calf tenderness Neuro: A&O x 3, no focal deficits noted, normal affect Skin: pale, warm, dry Principal Diagnosis Community acquired pneumonia Acute respiratory failure with hypoxia Iron deficiency anemia Vitamin B12 deficiency Discharge Exam Constitutional + well hydrated; no acute distress Eyes PERRL, conjunctivae normal, anicteric sclerae ENMT external ear and nose normal, oropharynx normal Respiratory Not in respiratory distress. Diminished breath sounds Cardiovascular Rate/Rhythm: regular rate and regular rhythm S1 S2 Gastrointestinal (Abdomen) normal bowel sounds, soft, nontender, no hepatosplenomegaly Musculoskeletal no cyanosis or clubbing, extremities motor strength 5/5 Neurologic PERRL, EOMI, accommodation nl, no face palsy, no dysarthria Psychiatric A+Ox3, euthymic affect Discharge Data Allergies Allergy/AdvReac Type Severity Reaction Status Date / Time Penicillins Allergy Intermediate RASH Verified 02/09/22 11:10 Consultations 02/09/22 13:05 ED Decision to Admit Stat Ordered Studies 02/09/22 17:09 CT angio chest PE protocol Urgent CTA: Moderate cardiomegaly. Moderate coronary artery calcifications. Atherosclerosis of the thoracic aorta without aneurysm or dissection. The pulmonary artery is dilated, 3.7 cm. No pulmonary emboli identified. CT CHEST: Subcentimeter right-sided thyroid nodule. Borderline enlarged mediastinal and hilar lymph nodes measure up to 9 mm, favored to be reactive. No pneumothorax, or pleural effusion. Bronchial wall thickening with mild right basilar mucous plugging. Patchy bilateral groundglass densities with ill-defined consolidative opacities of the apical right upper lobe. Mild intralobular septal thickening. Diffuse esophageal wall thickening. Large hiatal hernia. Unremarkable soft tissues. Subacute to chronic appearing bilateral rib fractures. IMPRESSION: 1. Cardiomegaly with evidence of pulmonary artery hypertension. No pulmonary emboli. 2. Patchy bilateral groundglass densities with ill-defined consolidative opacities of the right upper lobe. Findings are suggestive of a nonspecific infectious or inflammatory pneumonitis. Mild pulmonary edema would be difficult to exclude. 3. No pleural effusion. 4. Bronchial wall thickening with mucous plugging. 5. Large hiatal hernia. Hospital Course (1) Community acquired pneumonia: (2) Iron deficiency anemia: (3) Elevated troponin: (4) BALLARD (dyspnea on exertion): (5) Cough: 81-year-old female with PMH RLS, dyslipidemia, HTN, LBBB presented to ER from outpatient clinic for abnormal labs -anemia and SOB. Outpatient labs 01/23/2022 that showed low iron, low transferrin saturation and low ferritin. She was started on iron supplement every other day. 02/06/2022 outpatient labs WBC: 12, Hgb: 7.4, CXR: Showed pulmonary vascular congestion, bibasilar atelectasis. Patient was started on doxycycline. In ER patient afebrile, BP 170/77, P: 73, 95% on room air. Hgb: 8.1 (was 7.4 on 02/06/2022 and 13 in 2014), iron and ferritin levels low. Reported negative Hemoccult stool in ER. Patient denies any melena, hematochezia, vaginal bleeding. COVID, flu and RSV negative WBC on admission 13K CTA - No PE, patchy bilateral ground glass densities with ill defined consolidative opacities in RUL, bronchial wall thickening with mucous plugging Though trop was minimally elevated, EKG showed old LBBB Ox sats dropped to 87% in ER Reviewed Echo with Retail Supervisor. Echo showed normal EF 60-65%, mod conc LVH, LA mod dilated, G1 DD, trace MR, TR Based on history and findings, patient has acute respiratory failure with hypoxia due to pneumonia. Less likely due to cardiac cause Levofloxacin added to doxycycline patient was on Hb was 7.6. yesterday (last Hb outpatient was 13 in 2014) Lab work done by PCP on 02/06/22 showed iron deficiency anemia Got IV iron and 1 PRBC Hb today is 9.2 Vit B12 level was 76pg/ml Patient started on treatment for Vit B12 deficiency Patient was discharged on levofloxacin 750mg q48h to complete treatment. Patient to continue doxycycline for anther 4 days 2 step showed patient required 2l/min oxygen via nasal cannula with activity only Arrangements made (6) Hypokalemia: On admission K: 3.2 Was repleted. K is 4.1 today (7) HTN (hypertension): Patient hypertensive in ER on presentation BP currently controlled Continue home lisinopril (8) Dyslipidemia: Reports has not been taking simvastatin (9) RLS (restless legs syndrome): Continue ropinirole, gabapentin (10) LBBB (left bundle branch block): Chronic LBBB Total Time Total Time Spent Total Time Spent (In Minutes): 40 Total Time Includes: Examination of the Patient, Discharge Planning and Medication Reconciliation Discharge Plan Discharge Items Patient Disposition: Home - Self-Care Reason For Visit: Cough Discharge Diagnosis: Community acquired pneumonia Acute respiratory failure with hypoxia Iron deficiency anemia Vitamin B12 deficiency Activity: Resume your previous activity Non-emergency contact: Primary Care Provider Call non-emergency contact if: you have any medication questions and your symptoms worsen Follow-up/Referrals: Jolanta Fermin PA-C [Primary Care Provider] - Diet: Heart Healthy Addtl Attending Provider Instructions: Mrs Amor You came to the hospital with cough You were evaluated and found to have pneumonia, iron deficiency anemia and vitamin b12 deficiency You were treated for these. You got IV iron infusion and one unit of blood. You are being discharged on antibiotics: levofloxacin and doxycycline (continue the doxycycline you have at home) You are also discharged on oxygen as you are still requiring oxygen at 2l/min w ith activity. You were also started on vitamin b12 and folate as your vitamin b12 level was low. Please ensure follow up with your Primary Doctor. It was a pleasure taking care of you. Pending Studies at Discharge: No Stand-Alone Forms: My [facility] Resident Research, Smoking Cessation Medications and DC Order Prescriptions: New levofloxacin 750 mg Tablet 750 mg PO Q2D@1100 Qty: 2 RF: 0 cyanocobalamin (vitamin B-12) 500 mcg Tablet 1,000 mcg PO QAM 30 Days Qty: 60 RF: 0 folic acid 1 mg Tablet 1 mg PO QAM 30 Days Qty: 30 RF: 0 guaifenesin 100 mg/5 mL liquid 200 mg PO Q6H PRN (Reason: cough) Qty: 500 RF: 0 Continued ropinirole 3 mg tablet 3 mg PO TID RF: 0 doxycycline monohydrate 100 mg tablet 100 mg PO BID RF: 0 gabapentin 300 mg capsule 300 mg PO HS RF: 0 lisinopril 5 mg tablet 5 mg PO DAILY RF: 0 gabapentin 100 mg capsule 200 mg PO HS RF: 0 ferrous sulfate 325 mg (65 mg iron) Tablet 325 mg PO Q2D RF: 0 Discharge Orders: Discharge Order (Routine); Ordered 02/11/22 Ordered By: Julia Coto Admission Data Admit Date/Time: 02/09/22 13:33 Attending Provider: Julai Coto I. Admit Provider: Reinaldo Rich Primary Care Provider: Jolanta Fermin Other Providers: Reinaldo Rich Other Interventions: Discharge Summary Assessment (RN) Last Done: 02/11/22 10:39
== END 2022-02-11 13:23 | disposition home or self-care (01) | DRG 193 ==
LOC: ED 09:56 → SUATTDRO 13:33 → 2W 13:33

== ENCOUNTER 2022-03-28 11:50 | Inpatient (IN) ==
[2022-03-28] MEDS ORDERED: SODIUM CHLORIDE 0.9% 1000ML 1,000 ML IV STA (11:52)
[2022-03-28] MEDS ORDERED: ATROPINE SULFATE 0.1 MG/ML 10ML SYR IV STA (11:59)
[2022-03-28] MEDS ORDERED: ATROPINE SO4 1 MG/ML 1ML VIAL ONE (12:01)
[2022-03-28] MEDS ORDERED: ONDANSETRON INJ 2 MG/ML 2 ML VIAL IV STA (12:06)
[2022-03-28 12:20] LABS: iSTAT Creatinine 0.9 mg/dl (0.6-1.3); iSTAT Hemoglobin 13.9 g/dl (12.0-16.0); iSTAT Ionized Calcium 1.25 mmol/l (1.12-1.32)
[2022-03-28 12:27] LABS: Basophils # (auto) 0.02 K/uL (0-0.2); Basophils % (auto) 0.2 %; Eosinophils # (auto) 0.73 K/uL (0-0.5); Eosinophils % (auto) 6.3 %; Hematocrit (blood only) 38.5 % (37-47); Hemoglobin 11.4 g/dL (12.0-16.0); Immature Granulocytes # (auto) 0.07 K/uL (0.00-0.02); Immature Granulocytes % (auto) 0.6 %; Lymphocytes # (auto) 2.97 K/uL (1.2-3.4); Lymphocytes % (auto) 25.8 %; Mean Corpuscular Hemoglobin 25.3 pg (25-34); Mean Corpuscular Hgb Conc 29.6 g/dL (32-36); Mean Corpuscular Volume 85.6 fL (80-100); Mean Platelet Volume 9.7 fL (7.4-10.4); Monocytes # (auto) 0.66 K/uL (0.11-0.59); Monocytes % (auto) 5.7 %; Neutrophils # (auto) 7.07 K/uL (1.4-6.5); Neutrophils % (auto) 61.4 %; Platelet Count 427 K/uL (130-400); RDW Coefficient of Variation 23.7 % (11.5-14.5); White Blood Count 11.52 K/uL (4.8-10.8)
--- NOTE | 2022-03-28 12:30 | XRay Report ---
XR chest 1V portable CLINICAL HISTORY: syncope COMPARISON STUDY: Chest radiograph and chest CT February 09, 2022. FINDINGS: No pneumothorax or pleural effusion is present. A large hiatal hernia is again noted. Cardi omegaly is unchanged. Interstitial thickening persists. Patchy left midlung opacity has developed. IMPRESSION: 1. Persistent interstitial thickening suggestive of mild interstitial pulmonary edema. 2. New left lung airspace opacity which could reflect an infectious process or alveolar pulmonary amee ma. ACT 112: Negative or not required by law. Electronically signed by: Yaya Camacho M.D. 03/28/2022 12:28 PM
[2022-03-28 12:33] LABS: Partial Thromboplastin Ratio 0.9; Partial Thromboplastin Time 25.9 Seconds (21.0-31.0); Prothrombin Time 10.3 Seconds (9.0-12.0)
--- NOTE | 2022-03-28 12:40 | CT Scan Report ---
CT head/brain wo con CLINICAL HISTORY: 81 years-old Female with fall, syncope. Acute syncope status post fall TECHNIQUE: Multiple axial CT images of the head were obtained without contrast. A dose lowering tech nique was utilized adhering to the principles of ALARA. CT DOSE: 537.48 mGy.cm COMPARISON: CTA head 05/11/2016 FINDINGS: No acute intracranial hemorrhage, midline shift, intracranial mass, hydrocephalus, territorial ischem ia or abnormal extra-axial collection. Age-related involutional changes. White matter hypodensities s uggestive of chronic microvascular ischemic disease. Cerebral vascular calcifications. No acute calvarial fracture. Left temporal parietal scalp hematoma measures 4.5 cm. The paranasal si nuses, mastoid air cells, and middle ear cavities are clear. IMPRESSION: 1. No acute intracranial abnormality or calvarial fracture. 2. Small left scalp hematoma. ACT 112: Negative or not required by law. The above report was generated using voice recognition software. It may contain grammatical, syntax o r spelling errors. Electronically signed by: Jas Garcia M.D. 03/28/2022 12:39 PM
[2022-03-28 12:48] LABS: Troponin I High Sensitivity 11.7 pg/ml (0-14)
--- NOTE | 2022-03-28 12:50 | Emergency Department Note ---
Impression & Plan CHB (complete heart block), Acute electrocardiogram changes, Syncope and collapse, CHI (closed head injury) ED Provider Note INFORMANT: Patient ED PROVIDER(S): Mart Clayton MD CHIEF COMPLAINT: Syncope PLAN: Disposition: Admitted Condition: Guarded Outpatient prescription management: none Referral: None MEDICAL DECISION MAKING: Patient presented because of a syncopal episode. She had a minor head injury. She was found to be in complete heart block. Cardiology was emergently c onsulted. The patient was given 0.5 mg of atropine and that had minimal effect on her heart rate. The patient had unremarkable laboratory findings. Lyme testing was performed and was pending. Chest x-ray was unremarkable. Patient had an unremarkable head CT. Patient was evaluated in ER by Dr. De Leon of [facility] cardiology. It was felt that she required emergent catheterization and pacer. The patient was taken to the catheterization suite for further management by cardiology. I did consult with the [facility] hospitalist service. Discussed the case. Patient will be admitted under their service. Triage Nursing notes reviewed and agree them. Vital Signs: reviewed and remarkable for profound bradycardia Differential diagnosis: Vasovagal event, dehydration, infection, hypoglycemia, electrolyte abnormalities, cardiac sources, intracerebral event, pulmonary embolism, seizure, toxicologic, neurologic, as well as other pathologies. Diagnostics interpreted by me: ECG: Twelve-lead ECG reveals complete heart block at a rate of 30 bpm. There is anterior and inferior T wave inversions. When compared to January 2022 the T wave inversions are new and the heart block is new. Cardiac Monitoring: Cardiac monitoring ordered by me: The patient was placed on continuous cardiac monitoring and observed. It revealed a complete heart block at 29 bpm. Imaging studies: Head CT: A noncontrast CT scan of the head was performed and was negative for tumor, fracture, intracranial hemorrhage, or other acute pathology. Chest x-ray as noted below. Mild pulmonary edema. Edema versus infiltrate in the left side. HPI: The patient is a 81 year old female who presents to the Emergency Room with complaints of syncope. This started this morning and was brief, 1 minute. Patient states just prior to the episode she felt nauseated. The patient also notes the following associated symptoms, minimal headache and left rib discomfort. The patient has Zofran by EMS for relieving factors. Current pain is rated as 0/10. Patient received Zofran and did feel better. EMS noted her heart rate was in the 40s on monitor was concerning for complete heart block. She did have blood pressures that were 1 40-1 50 systolic. Pt denies headache, fevers, chills, diaphoresis, visual changes, neck pain, chest pain, breathing difficulties, nausea, vomiting, abdominal pain, back pain, melena, hematochezia, urinary symptoms, numbness, weakness, lymphadenopathy, rash, or other complaints. ROS: See above HPI for pertinent positives & negatives. A total of 10 systems reviewed and were otherwise negative. PAST MEDICAL HISTORY:See Below , pneumonia PAST SURGICAL HISTORY:See Below, FAMILY HISTORY:See Below SOCIAL HISTORY:See Below, HOME MEDICATIONS:See Below ALLERGIES:See Below VITALS:See Below PHYSICAL EXAMINATION: GENERAL: Awake, alert, uncomfortable-appearing, in no distress HENT: Normocephalic, atraumatic. Oropharynx unremarkable. EYES: Pale conjunctiva. Sclera non-icteric. NECK: Inspection normal. Non-tender. Supple. No nuchal rigidity. FROM. No masses. RESPIRATORY: Few scant basilar rales. Clear to auscultation otherwise. No wheezes. Normal respiratory effort. CARDIAC: Extreme bradycardic rate. Normal rhythm. No murmurs. No rubs. Extremities warm and well perfused. No JVD. GI: Soft, non-distended. No tenderness to palpation. No rebound or guarding. No masses. RECTAL: Deferred. MUSCULOSKELETAL: Atraumatic. Chest examination reveals no tenderness. The back is symmetrical on inspection without obvious abnormality. There is no CVA tenderness to palpation. No joint edema. LOWER EXTREMITIES: Calves are equal size bilaterally and non-tender. No edema. No discoloration. NEURO: Normal sensorium. No sensory or motor deficits noted. SKIN: No rash or jaundice noted. CRITICAL CARE: I have personally spent greater than 35 minutes of critical care time in the direct management of this patient. This includes bedside care, interpretation of diagnostic studies, and testing, discussion with consultants, patient, and family members, and other required patient management activities. This 30 minutes is in excess of all separately billable procedures. Mart Clayton MD Past Med/Surg History Medical History Dyslipidemia HTN (hypertension) LBBB (left bundle branch block) RLS (restless legs syndrome) Surgical History History of colonoscopy Family History Other Cancer Stroke Social History Smoking Status: Never smoker Hx Alcohol Use: No Hx Substance Use: No Preferred Language: Greek Communication Ability: Effective Bath Mixer Required: No Beliefs That Will Affect Care: None marital status: Current Living Situation: Spouse How many Children do You have: 1 Feels Safe at Home: Yes Safety Concerns: Feels Safe At This Time Assistive Devices: Oxygen - Continuous Assistive Devices Comment: Pt uses prn. Allergies Allergies Allergy/AdvReac Type Severity Reaction Status Date / Time Penicillins Allergy Intermediate RASH Verified 02/09/22 11:10 Home Meds Home Medications Medication Instructions Recorded Confirmed ferrous sulfate 325 mg (65 mg 325 mg PO DAILY 02/09/22 03/28/22 iron) tablet gabapentin 100 mg capsule 200 mg PO HS 02/09/22 03/28/22 gabapentin 300 mg capsule 300 mg PO HS 02/09/22 03/28/22 lisinopril 5 mg tablet 5 mg PO DAILY 02/09/22 03/28/22 ropinirole 3 mg tablet 3 mg PO TID 02/09/22 03/28/22 cyanocobalamin (vitamin B-12) 1,000 mcg PO DAILY 03/28/22 03/28/22 1,000 mcg tablet Results & Data (ED) Vital Signs Vital Signs - 24 hr 03/28/22 12:42 Pulse Rate 28 L Respiratory Rate 12 Pulse Oximetry 98 Oxygen Delivery Method Nasal Cannula Oxygen Flow Rate 4 Laboratory Data Result diagrams: 03/29/22 06:04 03/29/22 06:04 Lab Results 03/28/22 03/28/22 03/28/22 Range/Units 12:00 12:00 12:00 WBC 11.52 H (4.8-10.8) K/uL RBC 4.50 (4.2-5.4) M/uL Hgb 11.4 L (12.0-16.0) g/dL POC Hgb (12.0-16.0) g/dl Hct 38.5 (37-47) % POC Hct (37-47) % MCV 85.6 (80-100) fL MCH 25.3 (25-34) pg MCHC 29.6 L (32-36) g/dL RDW Std Deviation 73.0 H (36.4-46.3) fL RDW Coeff of Francia 23.7 H (11.5-14.5) % Plt Count 427 H (130-400) K/uL MPV 9.7 (7.4-10.4) fL Immature Gran % (Auto) 0.6 % Neut % (Auto) 61.4 % Lymph % (Auto) 25.8 % Tift % (Auto) 5.7 % Eos % (Auto) 6.3 % Baso % (Auto) 0.2 % Neut # (Auto) 7.07 H (1.4-6.5) K/uL Lymph # (Auto) 2.97 (1.2-3.4) K/uL Tift # (Auto) 0.66 H (0.11-0.59) K/uL Eos # (Auto) 0.73 H (0-0.5) K/uL Baso # (Auto) 0.02 (0-0.2) K/uL Immature Gran # (Auto) 0.07 H (0.00-0.02) K/uL Hypochromasia Present Poikilocytosis Present Microcytosis Present PT 10.3 (9.0-12.0) Seconds INR 1.0 (0.9-1.1) APTT 25.9 (21.0-31.0) Seconds PTT Ratio 0.9 POC Sodium (135-144) mmol/L Sodium 137 (136-145) mmol/L POC Potassium (3.3-5.0) mmol/L Potassium 4.0 (3.5-5.1) mmol/L POC Chloride (101-112) mmol/L Chloride 104 (98-107) mmol/L Carbon Dioxide 25 (21-32) mmol/L POC Total CO2 (24-31) mmol/L Anion Gap 8 (3-11) POC Anion Gap (16-25) mmol/L POC BUN (7-18) mg/dl BUN 18 (6-23) mg/dl Creatinine 0.86 (0.6-1.2) mg/dl POC Creatinine (0.6-1.3) mg/dl Est Cr Clr Drug Dosing 50.1 ml/min Est GFR ( Amer) 73.4 ml/min Est GFR (Non-Af Amer) 63.4 ml/min BUN/Creatinine Ratio 20.9 H (10-20) Glucose 125 H (70-99(Fasting)) mg/dl POC Glucose (other) (70-99) mg/dl Calcium 9.6 (8.5-10.1) mg/dl POC Ioniz Calcium Consuelo (1.12-1.32) mmol/l Magnesium 2.0 (1.7-2.4) mg/dl Total Bilirubin 0.4 (0.2-1.0) mg/dl AST 16 (13-39) U/L ALT 10 (7-52) U/L Alkaline Phosphatase 79 (34-104) U/L Troponin I High Sens 11.7 (0-14) pg/ml Total Protein 7.9 (6.0-8.3) gm/dl Albumin 4.3 (3.4-5.0) gm/dl Globulin 3.6 (2.5-4.0) gm/dl Albumin/Globulin Ratio 1.2 (0.9-2) TSH (0.300-4.500) uIu/ml Lyme Disease IgG Ab (Negative) Lyme Disease IgM Ab (Negative) SARS-CoV-2, RNA, NAAT (NEGATIVE) 03/28/22 03/28/22 03/28/22 Range/Units 12:00 12:00 12:07 WBC (4.8-10.8) K/uL RBC (4.2-5.4) M/uL Hgb (12.0-16.0) g/dL POC Hgb 13.9 (12.0-16.0) g/dl Hct (37-47) % POC Hct 41 (37-47) % MCV (80-100) fL MCH (25-34) pg MCHC (32-36) g/dL RDW Std Deviation (36.4-46.3) fL RDW Coeff of Francia (11.5-14.5) % Plt Count (130-400) K/uL MPV (7.4-10.4) fL Immature Gran % (Auto) % Neut % (Auto) % Lymph % (Auto) % Tift % (Auto) % Eos % (Auto) % Baso % (Auto) % Neut # (Auto) (1.4-6.5) K/uL Lymph # (Auto) (1.2-3.4) K/uL Tift # (Auto) (0.11-0.59) K/uL Eos # (Auto) (0-0.5) K/uL Baso # (Auto) (0-0.2) K/uL Immature Gran # (Auto) (0.00-0.02) K/uL Hypochromasia Poikilocytosis Microcytosis PT (9.0-12.0) Seconds INR (0.9-1.1) APTT (21.0-31.0) Seconds PTT Ratio POC Sodium 139 (135-144) mmol/L Sodium (136-145) mmol/L POC Potassium 4.0 (3.3-5.0) mmol/L Potassium (3.5-5.1) mmol/L POC Chloride 105 (101-112) mmol/L Chloride (98-107) mmol/L Carbon Dioxide (21-32) mmol/L POC Total CO2 24 (24-31) mmol/L Anion Gap (3-11) POC Anion Gap 16.0 (16-25) mmol/L POC BUN 17 (7-18) mg/dl BUN (6-23) mg/dl Creatinine (0.6-1.2) mg/dl POC Creatinine 0.9 (0.6-1.3) mg/dl Est Cr Clr Drug Dosing ml/min Est GFR ( Amer) ml/min Est GFR (Non-Af Amer) ml/min BUN/Creatinine Ratio (10-20) Glucose (70-99(Fasting)) mg/dl POC Glucose (other) 132 H (70-99) mg/dl Calcium (8.5-10.1) mg/dl POC Ioniz Calcium Consuelo 1.25 (1.12-1.32) mmol/l Magnesium (1.7-2.4) mg/dl Total Bilirubin (0.2-1.0) mg/dl AST (13-39) U/L ALT (7-52) U/L Alkaline Phosphatase (34-104) U/L Troponin I High Sens (0-14) pg/ml Total Protein (6.0-8.3) gm/dl Albumin (3.4-5.0) gm/dl Globulin (2.5-4.0) gm/dl Albumin/Globulin Ratio (0.9-2) TSH 2.973 (0.300-4.500) uIu/ml Lyme Disease IgG Ab Positive A (Negative) Lyme Disease IgM Ab Equivocal A (Negative) SARS-CoV-2, RNA, NAAT (NEGATIVE) 03/28/22 Range/Units 12:10 WBC (4.8-10.8) K/uL RBC (4.2-5.4) M/uL Hgb (12.0-16.0) g/dL POC Hgb (12.0-16.0) g/dl Hct (37-47) % POC Hct (37-47) % MCV (80-100) fL MCH (25-34) pg MCHC (32-36) g/dL RDW Std Deviation (36.4-46.3) fL RDW Coeff of Francia (11.5-14.5) % Plt Count (130-400) K/uL MPV (7.4-10.4) fL Immature Gran % (Auto) % Neut % (Auto) % Lymph % (Auto) % Tift % (Auto) % Eos % (Auto) % Baso % (Auto) % Neut # (Auto) (1.4-6.5) K/uL Lymph # (Auto) (1.2-3.4) K/uL Tift # (Auto) (0.11-0.59) K/uL Eos # (Auto) (0-0.5) K/uL Baso # (Auto) (0-0.2) K/uL Immature Gran # (Auto) (0.00-0.02) K/uL Hypochromasia Poikilocytosis Microcytosis PT (9.0-12.0) Seconds INR (0.9-1.1) APTT (21.0-31.0) Seconds PTT Ratio POC Sodium (135-144) mmol/L Sodium (136-145) mmol/L POC Potassium (3.3-5.0) mmol/L Potassium (3.5-5.1) mmol/L POC Chloride (101-112) mmol/L Chloride (98-107) mmol/L Carbon Dioxide (21-32) mmol/L POC Total CO2 (24-31) mmol/L Anion Gap (3-11) POC Anion Gap (16-25) mmol/L POC BUN (7-18) mg/dl BUN (6-23) mg/dl Creatinine (0.6-1.2) mg/dl POC Creatinine (0.6-1.3) mg/dl Est Cr Clr Drug Dosing ml/min Est GFR ( Amer) ml/min Est GFR (Non-Af Amer) ml/min BUN/Creatinine Ratio (10-20) Glucose (70-99(Fasting)) mg/dl POC Glucose (other) (70-99) mg/dl Calcium (8.5-10.1) mg/dl POC Ioniz Calcium Consuelo (1.12-1.32) mmol/l Magnesium (1.7-2.4) mg/dl Total Bilirubin (0.2-1.0) mg/dl AST (13-39) U/L ALT (7-52) U/L Alkaline Phosphatase (34-104) U/L Troponin I High Sens (0-14) pg/ml Total Protein (6.0-8.3) gm/dl Albumin (3.4-5.0) gm/dl Globulin (2.5-4.0) gm/dl Albumin/Globulin Ratio (0.9-2) TSH (0.300-4.500) uIu/ml Lyme Disease IgG Ab (Negative) Lyme Disease IgM Ab (Negative) SARS-CoV-2, RNA, NAAT NEGATIVE (NEGATIVE) Administered Medications Cyanocobalamin (Cyanocobalamin (B-12) 500 Mcg Tablet) 1,000 mcg PO DAILY LUCIA Stop: 04/28/22 08:59 Last Admin: 03/29/22 08:07 Dose: 1,000 mcg Documented by: [id number] Doxycycline Hyclate (Doxycycline Hyclate 100 Mg Cap) 100 mg PO BID LUCIA Stop: 04/07/22 20:59 Last Admin: 03/29/22 08:08 Dose: 100 mg Documented by: [id number] Admin: 03/28/22 20:12 Dose: 100 mg Documented by: [id number] Ferrous Sulfate (Ferrous Sulfate 325 Mg Tab) 325 mg PO DAILYBB LUCIA Stop: 04/28/22 06:29 Last Admin: 03/29/22 05:41 Dose: 325 mg Documented by: [id number] Gabapentin (Gabapentin 100 Mg Cap) 200 mg PO HS [facility] Stop: 04/27/22 20:59 Last Admin: 03/28/22 20:12 Dose: 200 mg Documented by: [id number] Gabapentin (Gabapentin 300 Mg Cap) 300 mg PO HS [facility] Stop: 04/27/22 20:59 Last Admin: 03/28/22 20:12 Dose: 300 mg Documented by: [id number] Lisinopril (Lisinopril 5 Mg Tab) 5 mg PO DAILY [facility] Stop: 04/28/22 08:59 Last Admin: 03/29/22 08:07 Dose: 5 mg Documented by: [id number] Ropinirole HCl (Ropinirole Hcl 1 Mg Tablet) 3 mg PO TID [facility] Stop: 04/27/22 20:59 Last Admin: 03/29/22 08:08 Dose: 3 mg Documented by: [id number] Admin: 03/28/22 20:12 Dose: 3 mg Documented by: [id number] Discontinued Medications Atropine Sulfate (Atropine Sulfate 0.1 Mg/Ml 10ml Syr) 0.5 mg IV NOW [facility] Stop: 03/28/22 12:00 Last Admin: 03/28/22 12:07 Dose: Not Given Documented by: [id number] Atropine Sulfate (Atropine So4 1 Mg/Ml 1ml Vial) Confirm Administered Dose 1 mg .ROUTE .STAvidRetail-MED ONE Stop: 03/28/22 12:02 Last Admin: 03/28/22 12:06 Dose: 0.5 mg Documented by: [id number] Bupivacaine HCl (Bupivacaine 0.25% 30 Ml Vial) Confirm Administered Dose 30 ml .ROUTE .STK-MED ONE Stop: 03/28/22 13:39 Last Admin: 03/28/22 15:08 Dose: 30 ml Documented by: [id number] Dopamine HCl/Dextrose (Dopamine 400mg / 250ml D5w (Dish Stacker Use Only)) Confirm Administered Dose 400 mg .ROUTE .STAvidRetail-MED ONE Stop: 03/28/22 12:56 Last Admin: 03/28/22 15:06 Dose: Not Given Documented by: [id number] Fentanyl Citrate (Fentanyl Citrate 100 Mcg/2 Ml Vial) Confirm Administered Dose 100 mcg .ROUTE .STK-MED ONE Stop: 03/28/22 14:04 Last Admin: 03/28/22 15:07 Dose: 75 mcg Documented by: [id number] Fentanyl Citrate (Fentanyl Citrate 100 Mcg/2 Ml Vial) Confirm Administered Dose 100 mcg .ROUTE .STK-MED ONE Stop: 03/28/22 15:18 Last Admin: 03/28/22 16:43 Dose: Not Given Documented by: [id number] Heparin Sodium (Porcine) (Heparin (Porcine) 1000 Unit/Ml 10 Ml (Dish Stacker Use Only)) Confirm Administered Dose 10,000 units .ROUTE .STK-MED ONE Stop: 03/28/22 15:18 Last Admin: 03/28/22 16:43 Dose: Not Given Documented by: [id number] Heparin Sodium/Sodium Chloride (Heparin In Nss Infusion 1000 Unit/500 Ml (2 U/Ml) Bag) Confirm Administered Dose 3,000 units IV .STK-MED ONE Stop: 03/28/22 15:18 Last Admin: 03/28/22 16:43 Dose: Not Given Documented by: [id number] Sodium Chloride (Nss 1000ml) 1,000 mls @ 125 mls/hr IV .Q8H STA Stop: 03/28/22 19:51 Last Infusion: 03/28/22 19:54 Dose: 0 mls/hr Documented by: [id number] Admin: 03/28/22 12:06 Dose: 125 mls/hr Documented by: [id number] Clindamycin Phosphate 600 mg/ (Dextrose) 54 mls @ 108 mls/hr IV PREOP STA Stop: 03/28/22 14:08 Last Infusion: 03/28/22 16:44 Dose: 0 mls/hr Documented by: [id number] Admin: 03/28/22 15:07 Dose: 108 mls/hr Documented by: [id number] Lidocaine HCl (Lidocaine 1% Local 20 Ml Vial) Confirm Administered Dose 20 ml .ROUTE .STK-MED ONE Stop: 03/28/22 13:39 Last Admin: 03/28/22 15:08 Dose: 20 ml Documented by: [id number] Midazolam HCl (Midazolam Hcl 1 Mg/Ml 2ml Vial) Confirm Administered Dose 2 mg .ROUTE .STK-MED ONE Stop: 03/28/22 14:04 Last Admin: 03/28/22 15:07 Dose: 2 mg Documented by: [id number] Midazolam HCl (Midazolam Hcl 1 Mg/Ml 2ml Vial) Confirm Administered Dose 2 mg .ROUTE .STK-MED ONE Stop: 03/28/22 15:18 Last Admin: 03/28/22 16:43 Dose: Not Given Documented by: [id number] Nicardipine HCl (Nicardipine Hcl Inj 2.5 Mg/Ml 10 Ml Amp) Confirm Administered Dose 25 mg .ROUTE .STK-MED ONE Stop: 03/28/22 15:18 Last Admin: 03/28/22 16:43 Dose: Not Given Documented by: [id number] Nitroglycerin/Dextrose (Nitroglycerin/D5w 100mcg/Ml 20ml Syr) Confirm Administered Dose 2,000 mcg .ROUTE .STK-MED ONE Stop: 03/28/22 15:19 Last Admin: 03/28/22 16:43 Dose: Not Given Documented by: [id number] Ondansetron HCl (Ondansetron Inj 2 Mg/Ml 2 Ml Vial) 4 mg IV NOW STA Stop: 03/28/22 12:07 Last Admin: 03/28/22 12:12 Dose: 4 mg Documented by: [id number] Pneumococcal Polyvalent Vaccine (Pneumococcal Polysaccharides 25 Mcg/0.5 Ml Vial/Syr) 25 mcg IM .ONCE ONE Stop: 03/28/22 16:34 Last Admin: 03/29/22 08:15 Dose: 25 mcg Documented by: [id number] Sterile Water (Water, Sterile For Inj 10 Ml Vial) Confirm Administered Dose 10 ml .ROUTE .STK-MED ONE Stop: 03/28/22 13:39 Last Admin: 03/28/22 15:07 Dose: 10 ml Documented by: [id number] Vancomycin HCl (Vancomycin Hcl 1000mg/20ml Vial) Confirm Administered Dose 50 mg .ROUTE .STK-MED ONE Stop: 03/28/22 13:39 Last Admin: 03/28/22 15:08 Dose: 50 mg Documented by: [id number] Imaging Data Radiologist's Impression: Chest X-Ray 03/28/22 11:52 XR chest 1V portable CLINICAL HISTORY: syncope COMPARISON STUDY: Chest radiograph and chest CT February 09, 2022. FINDINGS: No pneumothorax or pleural effusion is present. A large hiatal hernia is again noted. Cardiomegaly is unchanged. Interstitial thickening persists. Patchy left midlung opacity has developed. IMPRESSION: 1. Persistent interstitial thickening suggestive of mild interstitial pulmonary edema. 2. New left lung airspace opacity which could reflect an infectious process or alveolar pulmonary edema. ACT 112: Negative or not required by law. Electronically signed by: Yaya Camacho M.D. 03/28/2022 12:[address] 03/28/22 12:06 CT head/brain wo con CLINICAL HISTORY: 81 years-old Female with fall, syncope. Acute syncope status post fall TECHNIQUE: Multiple axial CT images of the head were obtained without contrast. A dose lowering technique was utilized adhering to the principles of ALARA. CT DOSE: 537.48 mGy.cm COMPARISON: CTA head 05/11/2016 FINDINGS: No acute intracranial hemorrhage, midline shift, intracranial mass, hydrocephalus, territorial ischemia or abnormal extra-axial collection. Age- related involutional changes. White matter hypodensities suggestive of chronic microvascular ischemic disease. Cerebral vascular calcifications. No acute calvarial fracture. Left temporal parietal scalp hematoma measures 4.5 cm. The paranasal sinuses, mastoid air cells, and middle ear cavities are clear. IMPRESSION: 1. No acute intracranial abnormality or calvarial fracture. 2. Small left scalp hematoma. ACT 112: Negative or not required by law. The above report was generated using voice recognition software. It may contain grammatical, syntax or spelling errors. Electronically signed by: Jas Garcia M.D. 03/28/2022 12:39 PM Discharge Plan Visit Data Chief Complaint: Syncope ED Provider: Mart Clayton Discharge Problem: CHB (complete heart block), Acute electrocardiogram changes, Syncope and collapse, CHI (closed head injury) Patient Disposition: Admitted As Inpatient Discharge Instructions Interventions: ED Discharge Assessment Last Done: 03/28/22 12:42
--- NOTE | 2022-03-28 12:51 | Cardiology Consultation ---
Date of Consultation March 28, 2022 Assessment & Plan (1) Syncope and collapse: (2) Third degree atrioventricular block: -Stat CT of the brain results now available, no acute intracranial abnormality or fracture, small scalp hematoma noted. Systolic blood pressure is noted in the 140s, profound bradycardia with rate of 25 to 35 bpm noted. Given findings of diffuse T wave inversions, it is difficult to distinguish if there is an underlying coronary heart disease culprit such as a stenosis in the right coronary artery with resultant ischemia related conduction system dysfunction. Case discussed with Dr. Manzano of interventional cardiology. We will plan to transfer the patient from the ER to cardiac catheterization laboratory, for placement of the temporary transvenous right ventricular pacemaker, and proceed with coronary angiography. If no culprit found, will likely proceed with permanent pacemaker today. Although Lyme disease with resultant AV block is a clinical consideration, the patient has an established history of cardiac conduction system disease with having been found to have a left bundle branch block during hospital stay in January,, and given her age and the pre-existing left bundle branch block, I would anticipate that the likelihood of this being an issue that would resolve with treatment for Lyme disease (if test positive) would not correct her AV block in her case, as she certainly has risk factors for underlying age-related conduction system disease. [id number] potassium is within normal limits. Hemoglobin today stable at 11.4. At bedtime troponin normal x1 , 11.7 PG per mL. History of Present Illness History of Present Illness Valentine Amor is an 81 year old female seen in cardiology consultation per the request of Dr Clayton for the evaluation of syncope and bradycardia with findings of third-degree atrioventricular block. Patient states that she was in her normal state of health this morning, and while shopping at [employer] had a marcela syncopal episode, hitting the back of her head. She presented to the emergency department, and has been found to have bradycardia with third-degree AV block and an idioventricular escape rhythm in the range of 25 to 35 bpm. Her blood pressure is stable, with systolic blood pressure in the 140s on serial readings. She endorses nausea at the time of the incident and mild ongoing nausea. She denies any recent chest discomfort with exertion or shortness of breath. Acute symptom onset this morning. Recent history is notable for admission in January, for community-acquired pneumonia, for which she received a course of doxycycline. She also has recent history of iron deficiency anemia, with hemoglobin of 7.4 on 02/06/2022. Most recent repeat labs 03/20/2022 as outpatient, hemoglobin 11.5, iron low normal 46, percent saturation low at 14, ferritin acceptable 68. CTA of the chest performed previous admission January, revealed enlargement of the cardiac silhouette with evidence of pulmonary hypertension, no pulmonary emboli. Consolidative opacities in the right upper lobe noted perhaps related pneumonitis. Outpatient follow-up in process. Allergies Allergy/AdvReac Type Severity Reaction Status Date / Time Penicillins Allergy Intermediate RASH Verified 02/09/22 11:10 Home Medications Medication Instructions Recorded Confirmed Type doxycycline monohydrate 100 mg 100 mg PO BID 02/09/22 02/09/22 History tablet ferrous sulfate 325 mg (65 mg 325 mg PO Q2D 02/09/22 02/09/22 History iron) tablet gabapentin 100 mg capsule 200 mg PO HS 02/09/22 02/09/22 History gabapentin 300 mg capsule 300 mg PO HS 02/09/22 02/09/22 History lisinopril 5 mg tablet 5 mg PO DAILY 02/09/22 02/09/22 History ropinirole 3 mg tablet 3 mg PO TID 02/09/22 02/09/22 History guaifenesin 100 mg/5 mL oral liquid 200 mg PO Q6H PRN #500 ml 02/11/22 Rx Patient History Medical History Dyslipidemia HTN (hypertension) LBBB (left bundle branch block) RLS (restless legs syndrome) Surgical History History of colonoscopy Family History Other Cancer Stroke Social History Smoking Status: Never smoker Hx Alcohol Use: Yes Alcohol type: wine Alcohol Intake Frequency: Monthly or Less Hx Substance Use: No Preferred Language: Pashto Communication Ability: Effective Supervisor Transferring And Boxing Required: No Beliefs That Will Affect Care: None Current Living Situation: Spouse Feels Safe at Home: Yes Assistive Devices: Glasses Review of Systems Review of Systems: All systems reviewed & are unremarkable except as noted in HPI & below Physical Exam Constitutional: + ill appearing Respiratory: Mild crackles bilaterally at the bases Cardiovascular: Rate/Rhythm: + bradycardic Heart Sounds: no murmur Extremities: no edema Gastrointestinal (Abdomen): normal bowel sounds, soft, nontender, no hepatosplenomegaly Neurologic: PERRL, EOMI, accommodation nl, no face palsy, no dysarthria Results & Data ([facility]) Vital Signs (Past 12 Hours) Vital Signs Temp Pulse Resp BP Pulse Ox 03/28/22 12:16 30 L 12 140/28 L 98 03/28/22 12:05 34 L 14 99 03/28/22 12:00 36.5 C 30 L 17 149/49 H 95 03/28/22 11:59 34 L 14 95 Laboratory Results Coagulation 03/28/22 Range/Units 12:00 PT 10.3 (9.0-12.0) Seconds APTT 25.9 (21.0-31.0) Seconds CBC 03/28/22 Range/Units 12:00 WBC 11.52 H (4.8-10.8) K/uL RBC 4.50 (4.2-5.4) M/uL Hgb 11.4 L (12.0-16.0) g/dL Hct 38.5 (37-47) % Plt Count 427 H (130-400) K/uL Neut # (Auto) 7.07 H (1.4-6.5) K/uL Lymph # (Auto) 2.97 (1.2-3.4) K/uL Oliver # (Auto) 0.66 H (0.11-0.59) K/uL Eos # (Auto) 0.73 H (0-0.5) K/uL Baso # (Auto) 0.02 (0-0.2) K/uL Intake and Output 03/27/22 03/28/22 03/28/22 22:59 06:59 14:59 Other: Weight 69.1 kg Weight Measurement Method Built in [facility] Patient Weight 03/29/22 06:59 Weight 69.1 kg Diagnostic Findings EKG performed this morning 11:56 AM revealed third-degree AV block, with idioventricular escape rhythm at 30 bpm, h keep T wave inversions noted in the inferior and precordial leads. Compared to the previous tracing performed 02/10/2022, left bundle branch block noted at that time, QRS duration 136 ms. Summary of echocardiogram performed 02/09/2022: Moderate concentric left ventricular hypertrophy, abnormal septal motion consistent with left bundle branch block LVEF 60 to 65% Moderate left atrial enlargement Moderate aortic valve sclerosis without stenosis Moderate elevation in the right ventricular systolic pressure 40 to 50 mmHg
[2022-03-28 12:54] LABS: Hypochromasia Present; Microcytosis Present; Poikilocytosis Present
[2022-03-28] MEDS ORDERED: DOPamine 400MG / 250ML D5W (Cath Lab Use ONLY) ONE (12:55)
[2022-03-28 13:03] LABS: Albumin Globulin Ratio 1.2 (0.9-2); Albumin Level 4.3 gm/dl (3.4-5.0); BUN Creatinine Ratio 20.9 (10-20); Bilirubin,Total 0.4 mg/dl (0.2-1.0); Calcium 9.6 mg/dl (8.5-10.1); Creatinine Clr Calc Pharmacy 50.1 ml/min; Est GFR (African American) 73.4 ml/min; Est GFR (Non-African American) 63.4 ml/min; Globulin 3.6 gm/dl (2.5-4.0); Total Protein 7.9 gm/dl (6.0-8.3)
--- NOTE | 2022-03-28 13:05 | History & Physical Report ---
Date of Service March 28, 2022 Assessment & Plan (1) Syncope and collapse: (2) Third degree atrioventricular block: Plan: Patient is 81-year-old female with PMH RLS, dyslipidemia, HTN, LBBB presented to ER for syncopal episode today while shopping. Found to be in complete heart block on EKG with diffuse T wave inversion. Initial troponin: 11.7, TSH: 2.9 CT Head: No acute intracranial abnormality or calvarial fracture. Small left scalp hematoma. History echo on 02/10/22: EF 60-65%, mod LVH, LA mod dilated, grade 1 diastolic dysfunction, trace MR, TR Taken to microbiological laboratory technician and temporary pacemaker placed. Coronary angiography with moderate nonobstructive coronary artery disease 60% mid LAD after takeoff of bifurcating D1, 50% mid circumflex, 40 to 50% earlymid RCA Complete heart block less likely secondary to ischemia Temporary pacemaker removed and permanent pacemaker placed by Dr Gilmore. Lyme IgG positive, IgM equivocal. Western blot pending Possible Lyme Disesase No known tick bite reported Lyme IgG positive, IgM equivocal. Western blot pending Start doxycycline Recent history Community acquired pneumonia, Acute Hypoxic Respiratory Failure 01/2022: CTA Chest: No PE, patchy bilateral ground glass densities with ill defined consolidative opacities in RUL, bronchial wall thickening with mucous plugging. Was treated with Levaquin and doxycycline Iron deficiency anemia: 01/2022: Hgb: 7.6 with iron deficiency anemia on labs. Received IV iron, 1 unit PRBC. 03/20/22 outpatient labs with improvement with ferritin up to 68 from 9 and Hgb: 11.5. Today Hgb: 11.4 On iron supplement HTN: Continue lisinopril Dyslipidemia: prescribed simvastatin, has not been taking it for months RLS (restless legs syndrome): Continue ropinirole, gabapentin LBBB (left bundle branch block): Chronic LBBB DVT Prophylaxis SCDs Full Code as per discussion with pt Follows with Jolanta Fermin PA-C for routine care Pt was seen and care coordinated with Dr Rangel. See addendum History of Present Illness Chief Complaint: Syncope Primary Care Provider: Jolanta Fermin PA-C Patient is 81-year-old female with PMH RLS, dyslipidemia, HTN, LBBB presented to ER for syncopal episode today while shopping. Reported felt nauseated and had sudden syncopal episode resulting in fall and lasting approximately one minute. EMS had noted complete heart block on EKG and patient was given Zofran for nausea. Denied chest pain or shortness of breath. In ER patient afebrile, HR 28- 45, BP: 149/49, 90% on RA. EKG complete heart block, rate 30, T wave inversions. Lyme titer pending. Patient emergently taken to microbiological laboratory technician placement for temporary pacemaker and coronary angiography and if no significant stenosis will likely need permanent pacemaker placement today. Allergies Allergy/AdvReac Type Severity Reaction Status Date / Time Penicillins Allergy Intermediate RASH Verified 02/09/22 11:10 Home Medications Medication Instructions Recorded Confirmed Type ferrous sulfate 325 mg (65 mg 325 mg PO DAILY 02/09/22 03/28/22 History iron) tablet gabapentin 100 mg capsule 200 mg PO HS 02/09/22 03/28/22 History gabapentin 300 mg capsule 300 mg PO HS 02/09/22 03/28/22 History lisinopril 5 mg tablet 5 mg PO DAILY 02/09/22 03/28/22 History ropinirole 3 mg tablet 3 mg PO TID 02/09/22 03/28/22 History cyanocobalamin (vitamin B-12) 1,000 mcg PO DAILY 03/28/22 03/28/22 History 1,000 mcg tablet Past Med/Surg History Medical History Dyslipidemia HTN (hypertension) LBBB (left bundle branch block) RLS (restless legs syndrome) Surgical History History of colonoscopy Family History Other Cancer Stroke Social History Smoking Status: Never smoker Hx Alcohol Use: No Hx Substance Use: No Preferred Language: Italian Communication Ability: Effective Client Professional Required: No Beliefs That Will Affect Care: None Current Living Situation: Spouse Feels Safe at Home: Yes Safety Concerns: Feels Safe At This Time Assistive Devices: Denture - Upper, Denture - Lower and Glasses Review of Systems Review of Systems: All systems reviewed & are unremarkable except as noted in HPI & below Physical Exam Physical Exam: General: no distress, WDWN Head: normocephalic, atraumatic Eyes: conjunctiva non-injected, anicteric ENT: normal inspection external ears, nose, mucous membranes moist Neck: supple, trachea midline Lungs: clear, no respiratory distress, no wheezing/rhonchi/rales CV: RRR, chest wall: left upper chest with surgical dressing in place and is dry, no pretibial edema Abd: normal BS, soft, non-tender Ext: no cyanosis, no calf tenderness, right radial wrist with band in place without noted bleeding, right groin with dressing in place and dry Neuro: A&O x 3, no focal deficits noted, normal affect Skin: warm, dry Results & Data Results & Data ([facility]) Vital Signs (Past 12 Hours) Vital Signs Temp Pulse Resp BP Pulse Ox 03/28/22 12:42 28 L 12 98 03/28/22 12:16 30 L 12 140/28 L 98 03/28/22 12:05 34 L 14 99 03/28/22 12:00 36.5 C 30 L 17 149/49 H 95 03/28/22 11:59 34 L 14 95 Laboratory Results Short CBC 03/28/22 Range/Units 12:00 WBC 11.52 H (4.8-10.8) K/uL Hgb 11.4 L (12.0-16.0) g/dL Hct 38.5 (37-47) % Plt Count 427 H (130-400) K/uL BMP 03/28/22 12:00 Sodium 137 Potassium 4.0 Chloride 104 Carbon Dioxide 25 BUN 18 Creatinine 0.86 Glucose 125 H Calcium 9.6 Liver Function 03/28/22 Range/Units 12:00 Total Bilirubin 0.4 (0.2-1.0) mg/dl AST 16 (13-39) U/L ALT 10 (7-52) U/L Alkaline Phosphatase 79 (34-104) U/L Albumin 4.3 (3.4-5.0) gm/dl Diagnostic Findings Chest X-Ray 03/28/22 11:52 XR chest 1V portable CLINICAL HISTORY: syncope COMPARISON STUDY: Chest radiograph and chest CT February 09, 2022. FINDINGS: No pneumothorax or pleural effusion is present. A large hiatal hernia is again noted. Cardiomegaly is unchanged. Interstitial thickening persists. Patchy left midlung opacity has developed. IMPRESSION: 1. Persistent interstitial thickening suggestive of mild interstitial pulmonary edema. 2. New left lung airspace opacity which could reflect an infectious process or alveolar pulmonary edema. ACT 112: Negative or not required by law. Electronically signed by: Yaya Camacho M.D. 03/28/2022 12:[address] 03/28/22 12:06 CT head/brain wo con CLINICAL HISTORY: 81 years-old Female with fall, syncope. Acute syncope status post fall TECHNIQUE: Multiple axial CT images of the head were obtained without contrast. A dose lowering technique was utilized adhering to the principles of ALARA. CT DOSE: 537.48 mGy.cm COMPARISON: CTA head 05/11/2016 FINDINGS: No acute intracranial hemorrhage, midline shift, intracranial mass, hydrocephalus, territorial ischemia or abnormal extra-axial collection. Age-rel ated involutional changes. White matter hypodensities suggestive of chronic microvascular ischemic disease. Cerebral vascular calcifications. No acute calvarial fracture. Left temporal parietal scalp hematoma measures 4.5 cm. The paranasal sinuses, mastoid air cells, and middle ear cavities are clear. IMPRESSION: 1. No acute intracranial abnormality or calvarial fracture. 2. Small left scalp hematoma. ACT 112: Negative or not required by law. The above report was generated using voice recognition software. It may contain grammatical, syntax or spelling errors. Electronically signed by: Jas Garcia M.D. 03/28/2022 12:39 PM Supervising Physician Co-Signing Physician Notes Patient seen and examined independently at bedside. Chart reviewed. Case discussed with Lynn MENG and agree with the documentation above. In summary, this is an 81 year old female who presented with witnessed syncopal episode today while shopping at [employer] and found to have complete heart block. She underwent emergency cardiac cath followed by permanent pacemaker placement today. Post procedure, she was doing fine. Had some soreness at site of fall but did not want any pain medications. She denies any lightheadedness, dizziness, palpitations, chest pain. AAOx3, lying comfortably in bed, left upper chest incision site clean dry intact, LUE in sling, no edema. Abd benign. Her lyme IgM is equivocal and lyme IgG is positive, western blot is pending. She denies any tick bites but lives in the [facility]. Continue doxy pending final western blot. Rest as per the note above.
[2022-03-28] MEDS ORDERED: CLINDAMYCIN PHOS 300 MG/2 ML VIAL IV SCH (13:37)
[2022-03-28] MEDS ORDERED: VANCOMYCIN HCL 1000MG/20ML VIAL ONE (13:38)
[2022-03-28] MEDS ORDERED: WATER, STERILE FOR INJ 10 ML VIAL ONE (13:38)
[2022-03-28] MEDS ORDERED: BUPIVACAINE 0.25% 30 ML VIAL ONE (13:38)
[2022-03-28] MEDS ORDERED: LIDOCAINE 1% LOCAL 20 ML VIAL ONE (13:38)
[2022-03-28] MEDS ORDERED: CLINDAMYCIN 600 MG in DEXTROSE 5% 50 ML IV STA (13:39)
--- NOTE | 2022-03-28 13:46 | History & Physical Bridge Note ---
Date of Service March 28, 2022 History & Physical Bridge Note I have examined the patient, reviewed the History & Physical and in the interval since the performance of the History & Physical I have noted the following changes of clinical significance: pt in chb s/p cath no RCA disease she is for a ppm consent signed with her
--- NOTE | 2022-03-28 13:47 | Pre Anesthesia Assessment ---
Date of Service March 28, 2022 Pre Sedation Assessment Vital Signs Temp Pulse Resp BP Pulse Ox 03/28/22 12:42 28 L 12 98 03/28/22 12:16 30 L 12 140/28 L 98 03/28/22 12:05 34 L 14 99 03/28/22 12:00 36.5 C 30 L 17 149/49 H 95 03/28/22 11:59 34 L 14 95 Cardiovascular + bradycardic Respiratory normal respiratory effort, lungs clear to auscultation Pre-Sedation Airway Assessment Smoking Status: Never smoker Hx Sleep Apnea: No Hx Difficult Intubation: No Short, Thick Neck: No Thyromental Distance: < 3.5 Finger Breadths Oral Cavity: + Dental Abnormalities Mallampati Class: II ASA: ASA3 NPO Status Date of Last Intake of Fluids: 03/28/22 Date of Last Intake of Solid Food: 03/28/22 Procedure Planning Contraindications for Sedation: none Current Medications Reviewed: Yes Notes The planned sedation has been discussed with the patient. Informed Consent was obtained. I have identified the patient, determined the appropriateness of sedation and have assessed the patient immediately prior to the procedure. All medicine(s) and interventions are by my order.
--- NOTE | 2022-03-28 13:52 | Cardiac Catheterization ---
[facility] Data: Is Technician Cardiac Status Clinical evaluation leading to the procedure CAD Presenation: Sx unlikely to be ischemic (Complete heart block) Diagnostic Physicians Name: Sidney Manzano MD Closure Device Recommendations: Medical Therapy and/or Counseling and Management Recommendatons (Permanent pacemaker) Cardiac Cath Procedure Full Procedure Date March 28, 2022 Pre-Procedure Diagnosis Pre-Procedure Diagnosis: Arrhythmia (Complete heart block) AUC Score AUC Score: 8 Post-Procedure Diagnosis Post-Procedure Diagnosis: Moderate CAD and Normal Intracardiac Pressures Procedure(s) Performed Procedure(s) Performed: Coronary Angiography, Left Heart Cath, Temporary Pacemaker and Ultrasound Guided Vascular Access Student Support Advisor Sidney Manzano MD Coffee Shop Manager(s) Showers Estimated Blood Loss Estimated Blood Loss: 5 Medication(s) Medication(s): Fentanyl, Lidocaine 1%, Nicardipine and Versed Summary of Findings Indication: Syncope, complete heart block, dynamic ST changes on ECG Access: 6 Fr right common femoral vein under ultrasound guidance, 6 Fr right radial artery under ultrasound guidance Catheters: [address], diagnostic JR4, transvenous pacemaker Procedure: Temporary transvenous pacemaker navigated from right common femoral vein under fluoroscopic guidance into RV Successful pacing confirmed to outputs less than 1 mA Pacer settings VVI at 80 bpm, 5 mA Findings: LM -normal caliber, no significant disease LAD -medium caliber, 60% mid segment disease after takeoff of bifurcating D1, remainder of vessel without significant disease and extends to apex. D1 without significant disease. Circumflex -medium caliber, 50% mid segment stenosis prior to OM 2. Medium OM1, OM 2 without disease. RCA -large caliber, dominant, 40 to 50% earlymid stenosis. Distal vessel, right PDA without significant disease. LVEDP -3 Arterial Closure: TR band Summary: 1. Moderate nonobstructive coronary artery disease -60% mid LAD after takeoff of bifurcating D1 50% mid circumflex 40 to 50% earlymid RCA 2. Normal intracardiac filling pressure 3. Successful placement of transvenous temporary pacemaker Recommendations: Permanent pacemaker per EP. Continued ASCVD risk factor modification Hemodynamics Rest Ao:: 99/36/61 Final Ao: 94/50/70 LV: 100/3 Recommendations Recommendations: Medical Therapy and/or Counseling and Management Recommendatons (Permanent pacemaker) Specimens Specimens: None Radiation Exposure (mGy) 452 Contrast (mls) 50 Anesthesia Moderate 1495-6593 Procedural Complication(s) None Disposition Is Technician Holding/Recovery I attest to the content of the Intraoperative Record and any orders documented therein. Any exceptions are noted below. [facility] Card Cath Procedure Codes Cardiac Catheterization Procedure 1: Cardiovascular Cath Procedures: 60522 Coronaries and LHC (+/-LV) Therapeutic Services & Ancillary Proc Procedure 1: Cardiovascular Tx and Anc Procedures: 90237 Ultrasonic Guidance Vascular Access Procedure 2: Cardiovascular Tx and Anc Procedures: 11692 Ultrasonic Guidance Vascular Access Procedure 3: Cardiovascular Tx and Anc Procedures: 86031 Temp Pacer Insert PG Care Time/CCT Total # of Minutes Spent Total Time Spent with Patient: Total time spent is greater than 50% in coordination of care (as documented) at patient's floor/unit and/or counseling patient:
[2022-03-28] MEDS ORDERED: fentaNYL citrate 100 MCG/2 ML VIAL ONE ×2 (14:03→15:17)
[2022-03-28] MEDS ORDERED: MIDAZOLAM HCL 1 MG/ML 2ML VIAL ONE ×2 (14:03→15:17)
[2022-03-28 14:15] LABS: Lyme Ab IgG w/WB Rflx Positive (Negative); Lyme Ab IgM w/WB Rflx Equivocal (Negative)
--- NOTE | 2022-03-28 14:52 | Post Anesthesia Assessment ---
Date of Service March 28, 2022 Post Sedation Assessment Vital Signs Temp Pulse Resp BP Pulse Ox 03/28/22 12:42 28 L 12 98 03/28/22 12:16 30 L 12 140/28 L 98 03/28/22 12:05 34 L 14 99 03/28/22 12:00 36.5 C 30 L 17 149/49 H 95 03/28/22 11:59 34 L 14 95 Recovery Score Activity: Moves 4 extremities Respiration: Deep Breath/Cough Circulation: +/-20% PreAnes Value Consciousness: Fully Awake Oxygen Saturation: > 92% On Room Air Discharge Sedation Level of Care: Fast Track Phase II Post Sedation Plan On clinical assessment, the patient appears to have tolerated the sedation without complications. Patient is recovering as anticipated. Patient will continue to be monitored by nursing and may be discharged when sedation discharge criteria are met per below protocol. Upon Completions of procedure up to 15 minutes continue every 5 minute vital signs and the P.A.R. score; then discharge to a Phase I or Fast Track to Phase II per the following guidelines: * Discharge Patient to appropriate Phase II area if PAR is 8 or greater or return to pre- procedure baseline. The post - procedure orders will be as directed. * If PAR score is less than 8 or not return to pre-procedure baseline then patient will follow Phase I monitoring till PAR is reached for Phase II. The Phase I may be done in procedure room or may call to secure a Phase I area. * If naloxone or flumazenil are used for reversal, hold in Phase I for continued monitoring from when last reversal dose was given for a minimum of 60 minutes or longer pending the nurse and/or physician discretion of patient condition before discharge to Phase II. Please call the Sedation Physician to re-evaluate and complete post-note for discharge to Phase II area. Do NOT discharge from procedure sedation or Phase 1 until post- sedation evaluation note is complete by procedure /sedation MD Sedation Discharge Instructions to be given to the patient at discharge to home.
--- NOTE | 2022-03-28 14:53 | Operative Report ---
Post Operative Report Pre & Post Diagnosis chb Operation Date: 03/28/22 12:30 <No data on this case meets the specified criteria> I identified the patient and participated in the time-out.: Yes Procedure dual chamber ppm Operation Date: 03/28/22 12:30 Actual Procedures p Cineradiography w/Routine Exam - Tolu Manzano MD Surgeon Angie Gilmore, Substance Abuse Counselor none Estimated Blood Loss 50 Findings Consistent with Post-Op Diagnosis Specimens none Description of Procedure see official report I attest to the content of the Intraoperative Record and any orders documented therein. Any exceptions are noted below.
[2022-03-28] MEDS ORDERED: HEPARIN (PORCINE) 1000 UNIT/ML 10 ML (CATH LAB USE ONLY) ONE (15:17)
[2022-03-28] MEDS ORDERED: niCARdipine HCL INJ 2.5 MG/ML 10 ML AMP ONE (15:17)
[2022-03-28] MEDS ORDERED: NITROGLYCERIN/D5W 100MCG/ML 20ML SYR ONE (15:18)
[2022-03-28] MEDS ORDERED: POLYETHYLENE (MIRALAX) 17 GM PACK PO PRN (15:59)
[2022-03-28] MEDS ORDERED: ACETAMINOPHEN 325 MG TAB PO PRN (15:59)
[2022-03-28] MEDS ORDERED: PNEUMOCOCCAL POLYSACCHARIDES 25 MCG/0.5 ML VIAL/SYR IM ONE (16:33)
--- NOTE | 2022-03-28 17:06 | XRay Report ---
XR chest 1V portable CLINICAL HISTORY: s.p ppm ensure no ptx COMPARISON STUDY: Chest CT February 09, 2022. Chest radiograph March 28, 2022 at 12:06 pm. FINDINGS: There is no pneumothorax following placement of a dual lead left subclavian pacemaker. Lead positions are suboptimally assessed given lack of lateral projection. Cardiomegaly is again noted as well as a large hiatal hernia. No pleural effusion is identified. Suspected pulmonary edema has slig htly progressed. IMPRESSION: 1. No pneumothorax following placement of a dual-lead left subclavian pacemaker. 2. Slight progression of pulmonary edema. ACT 112: Negative or not required by law. Electronically signed by: Yaya Camacho M.D. 03/28/2022 5:05 PM
[2022-03-28 19:16] LABS: Appearance Urine Clear (Clear); Bacteria Urine Automated 4+ (Negative); Bilirubin Urine Negative (Negative); Blood Urine Negative (Negative); Color Urine Yellow; Glucose Urine UA Negative (Negative); Ketones Urine Negative (Negative); Leukocyte Esterase Urine Trace (Negative); Nitrite Urine Positive (Negative); Protein Urine Negative (Negative); RBC Urine Automated 0-4 /hpf (0-4); Specific Gravity Urine 1.031 (1.000-1.030); Urobilinogen Urine Negative (Negative)
[2022-03-28] MEDS: GABAPENTIN 100 MG CAP PO SCH (20:12)
[2022-03-28] MEDS: GABAPENTIN 300 MG CAP PO SCH (20:12)
[2022-03-28] MEDS: DOXYCYCLINE HYCLATE 100 MG CAP PO SCH (20:12)
[2022-03-28] MEDS: rOPINIRole HCL 1 MG TABLET PO SCH (20:12)
[2022-03-29] MEDS: FERROUS SULFATE 325 MG TAB PO SCH (05:41)
[2022-03-29 07:13] LABS: BUN Creatinine Ratio 14.9 (10-20); Calcium 9.2 mg/dl (8.5-10.1); Creatinine Clr Calc Pharmacy 49.5 ml/min; Est GFR (African American) 72.4 ml/min; Est GFR (Non-African American) 62.5 ml/min; Potassium 4.1 mmol/L (3.5-5.1)
[2022-03-29 07:23] LABS: Hematocrit (blood only) 35.7 % (37-47); Hemoglobin 10.3 g/dL (12.0-16.0); Mean Corpuscular Hemoglobin 25.5 pg (25-34); Mean Corpuscular Hgb Conc 28.9 g/dL (32-36); Mean Corpuscular Volume 88.4 fL (80-100); Mean Platelet Volume 9.7 fL (7.4-10.4); Platelet Count 337 K/uL (130-400); RDW Coefficient of Variation 23.8 % (11.5-14.5); RDW Standard Deviation 76.1 fL (36.4-46.3); Red Blood Count 4.04 M/uL (4.2-5.4); White Blood Count 9.12 K/uL (4.8-10.8)
[2022-03-29 07:33] LABS: Basophils # (auto) 0.01 K/uL (0-0.2); Basophils % (auto) 0.1 %; Eosinophils # (auto) 0.49 K/uL (0-0.5); Eosinophils % (auto) 5.4 %; Immature Granulocytes # (auto) 0.03 K/uL (0.00-0.02); Immature Granulocytes % (auto) 0.3 %; Lymphocytes # (auto) 2.09 K/uL (1.2-3.4); Lymphocytes % (auto) 22.9 %; Monocytes # (auto) 0.66 K/uL (0.11-0.59); Monocytes % (auto) 7.2 %; Neutrophils # (auto) 5.84 K/uL (1.4-6.5); Neutrophils % (auto) 64.1 %; Poikilocytosis Present
[2022-03-29] MEDS: CYANOCOBALAMIN (B-12) 500 MCG TABLET PO SCH (08:07)
[2022-03-29] MEDS: lisinopril 5 MG TAB PO SCH (08:07)
[2022-03-29] MEDS: rOPINIRole HCL 1 MG TABLET PO SCH ×3 (08:08→20:24)
[2022-03-29] MEDS: DOXYCYCLINE HYCLATE 100 MG CAP PO SCH (08:08)
[2022-03-29] MEDS ORDERED: FUROSEMIDE INJ 20 MG/2 ML VIAL IV ONE (11:49)
[2022-03-29] MEDS ORDERED: ASPIRIN 81 MG ECTAB PO SCH (12:00)
--- NOTE | 2022-03-29 12:03 | Cardiology Progress Note ---
Date of Service March 29, 2022 Assessment & Plan (1) Syncope and collapse: (2) Third degree atrioventricular block: (3) LBBB (left bundle branch block): (4) Pacemaker: (5) CAD (coronary artery disease): Plan: 81 year old female (1) Syncope and collapse, (2) Intermittent third degree atrioventricular block, (3) LBBB (left bundle branch block) prompting implantation of dual chamber Medtronic Permanent Pacemaker, RA lead, and HIS bundle lead, 03/28/22 -Device check reveals stable function. -CXR without PTX, mild interstitial edema, lungs exam improved today. (5) CAD (coronary artery disease): Non culprit mild to moderate CAD (formal cath report pending) for which medical management recommended. Pt without angina. EKG performed today 03/29/22 reveals SR at 65 bpm with LBBB, similar to that noted 01/2022. Compared to 03/28 3rd degree AVB and junctional escape rhythm resolved. Echo 01/2022 , normal LVEF, abnormal septal motion consistent with LBBB. For now, hold off on aspirin therapy given recent anemia, Hgb down to 7.4 in January. Hold off on beta jae as came in with bradycardia, and although now has pacer, would like to encourage underlying rhythm. Continue lisinopril. Start statin therapy, LDL 145 Sep 2021. Furosemide 20 mg x 1 to optimize volume status. DISPOSITION: - outpt wound check , device check in 7-10 days. Follow up with Dr De Leon or other provider in 1-2 weeks. Admission and Anticipated Discharge Date Admission Date: March 28, 2022 Subjective Pt seen in cardiology follow up. Feels well. Telemetry reveals SR in 70s. Post pacemaker, pt's underlying rhythm returned to sinus. Per pacer interrogation , only paced 4% of time overnight. Thresholds normal. CXR reveals no pneumothorax. Review of Systems Review of Systems: All systems reviewed & are unremarkable except as noted in HPI & below Physical Exam Physical Exam: Temp Pulse Resp BP Pulse Ox 36.6 C 67 17 155/76 H 94 03/29/22 10:50 03/29/22 10:50 03/29/22 10:50 03/29/22 10:50 03/29/22 10:50 Constitutional: WD/WN, vitals as above Respiratory: normal respiratory effort, lungs clear to auscultation Cardiovascular: RRR, no murmur, no edema Gastrointestinal (Abdomen): normal bowel sounds, soft, nontender, no hepatosplenomegaly Neurologic: PERRL, EOMI, accommodation nl, no face palsy, no dysarthria Results & Data ([facility]) Vital Signs (Past 12 Hours) Vital Signs Temp Pulse Resp BP Pulse Ox 03/29/22 10:50 36.6 C 67 17 155/76 H 94 03/29/22 07:37 36.4 C L 68 19 171/82 H 97 03/29/22 03:14 36.8 C 65 17 140/77 99 Laboratory Results Cardiac Enzymes 03/28/22 Range/Units 12:00 AST 16 (13-39) U/L Troponin I High Sens 11.7 (0-14) pg/ml Coagulation 03/28/22 Range/Units 12:00 PT 10.3 (9.0-12.0) Seconds APTT 25.9 (21.0-31.0) Seconds CBC 03/28/22 03/29/22 Range/Units 12:00 06:04 WBC 11.52 H 9.12 (4.8-10.8) K/uL RBC 4.50 4.04 L (4.2-5.4) M/uL Hgb 11.4 L 10.3 L (12.0-16.0) g/dL Hct 38.5 35.7 L (37-47) % Plt Count 427 H 337 (130-400) K/uL Neut # (Auto) 7.07 H 5.84 (1.4-6.5) K/uL Lymph # (Auto) 2.97 2.09 (1.2-3.4) K/uL Rice # (Auto) 0.66 H 0.66 H (0.11-0.59) K/uL Eos # (Auto) 0.73 H 0.49 (0-0.5) K/uL Baso # (Auto) 0.02 0.01 (0-0.2) K/uL Comprehensive Metabolic Panel 03/28/22 03/29/22 Range/Units 12:00 06:04 Sodium 137 139 (136-145) mmol/L Potassium 4.0 4.1 (3.5-5.1) mmol/L Chloride 104 106 (98-107) mmol/L Carbon Dioxide 25 27 (21-32) mmol/L BUN 18 13 (6-23) mg/dl Creatinine 0.86 0.87 (0.6-1.2) mg/dl Glucose 125 H 121 H (70-99(Fasting)) mg/dl Calcium 9.6 9.2 (8.5-10.1) mg/dl AST 16 (13-39) U/L ALT 10 (7-52) U/L Alkaline Phosphatase 79 (34-104) U/L Total Protein 7.9 (6.0-8.3) gm/dl Albumin 4.3 (3.4-5.0) gm/dl Intake and Output 03/28/22 03/29/22 03/29/22 22:59 06:59 14:59 Intake Total 1354 / 1354 240 / 240 Output Total 300 / 300 Balance 1054 / 1054 240 / 240 Intake: IV 1054 / 1054 Clindamycin 600 mg In Dextrose 54 / 54 5% 50 ml @ 108 mls/hr IV PREOP STA Rx#:[id number] Sodium Chloride 0.9% 1000ML 1, 1000 / 1000 000 ml @ 125 mls/hr IV .Q8H STA Rx#:[id number] Oral 300 / 300 240 / 240 Output: Urine 300 / 300 Other: # Unmeasured Voids 1 1 2 Weight 69.1 kg 69.2 kg Weight Measurement Method Built in [facility] Built in [facility]
[2022-03-29] MEDS ORDERED: DOXYCYCLINE HYCLATE 100 MG in DEXTROSE 5% 100 ML IV SCH (13:00)
[2022-03-29] MEDS: ATORVASTATIN 10 MG TAB PO SCH (13:04)
[2022-03-29] MEDS ORDERED: cefTRIAXone SODIUM 2,000 MG in DEXTROSE 5% 50 ML IV SCH (13:45)
--- NOTE | 2022-03-29 13:50 | Communication Note ---
Date of Service: March 29, 2022 Lyme serology reveals IgG positivity, IgM equivocal. Western blot currently pending. Patient certainly lives in an endemic area, but has no recent febrile illness, known tick bite, or erythema migrans. Given her age and history of underlying conduction system disease, with longstanding history of left bundle branch block, first noted on outpatient EKG reviewed in [facility] today dated 03/31/2015, is difficult to say whether or not her syncope with intermittent high-grade AV block and prolonged ventricular of 25 to 35 bpm is due to acute Lyme carditis, or just progression of her underlying conduction system disease. The patient regained AV conduction at the conclusion of her procedure yesterday, without having received antibiotics specified for Lyme at that time. Of note, she had just completed a 20-day course of doxycycline for pneumonia in January. She has a history of rash with penicillin, but no past cephalosporin allergy. I have requested a repeat echocardiogram for evaluation of any echocardiographic evidence of Lyme myocarditis such as pericardial effusion, new LV dysfunction. Options include treatment with Rocephin, although even if she did have high- grade AV block due to myocarditis, once the UT interval is less than 300 ms in sinus rhythm reestablished, treatment with oral doxycycline for 14 to 21 days is typically indicated. As noted, will proceed with echo which will aid in decision making. Postpone discharge previously considered for today. Case reviewed with Dr Del Valle.
[2022-03-29] MEDS: cefTRIAXone SODIUM 2,000 MG in DEXTROSE 5% 50 ML IV SCH (14:16)
--- NOTE | 2022-03-29 14:21 | Electrocardiogram Report ---
Test Reason : Blood Pressure : / mmHG Vent. Rate : 087 BPM Atrial Rate : 087 BPM P-R Int : 192 ms QRS Dur : 138 ms QT Int : 402 ms P-R-T Axes : 052 -41 126 degrees QTc Int : 483 ms Normal sinus rhythm Left axis deviation Left bundle branch block Abnormal ECG When compared with ECG of 28-MAR-2022 11:56, Sinus rhythm with complete heart block no longer present Vent. rate has increased BY 57 BPM Confirmed by Brenton Conklin ([id number]) on 03/29/2022 2:21:26 PM Referred By: REFERRED SELF Confirmed By:Brenton Conklin
--- NOTE | 2022-03-29 14:21 | Electrocardiogram Report ---
Test Reason : Blood Pressure : / mmHG Vent. Rate : 030 BPM Atrial Rate : 038 BPM P-R Int : 000 ms QRS Dur : 138 ms QT Int : 582 ms P-R-T Axes : 000 096 -52 degrees QTc Int : 411 ms Idioventricular rhythm Sinus rhythm with complete heart block Abnormal ECG When compared with ECG of 10-FEB-2022 06:01, Sinus rhythm with complete heart block now present Vent. rate has decreased BY 43 BPM Confirmed by Brenton Conklin ([id number]) on 03/29/2022 2:20:47 PM Referred By: REFERRED SELF Confirmed By:Brenton Conklin
--- NOTE | 2022-03-29 14:26 | Electrocardiogram Report ---
Test Reason : Blood Pressure : / mmHG Vent. Rate : 065 BPM Atrial Rate : 065 BPM P-R Int : 172 ms QRS Dur : 148 ms QT Int : 462 ms P-R-T Axes : 034 -33 132 degrees QTc Int : 480 ms Normal sinus rhythm Left axis deviation Left bundle branch block Abnormal ECG When compared with ECG of 28-MAR-2022 14:54, No significant change was found Confirmed by Brenton Conklin ([id number]) on 03/29/2022 2:25:47 PM Referred By: REFERRED SELF Confirmed By:Brenton Conklin
--- NOTE | 2022-03-29 15:35 | Hospitalist Progress Note ---
Date of Service March 29, 2022 Assessment & Plan (1) Syncope and collapse: (2) Third degree atrioventricular block: Plan: 81-year-old female with PMH of RLS, dyslipidemia, HTN, LBBB presented to ER 03/28 for syncopal episode on the day of arrival while shopping. She is being managed for the following: #. Third-degree heart block #. Syncope and collapse #. Mild Pul edema: likely 2/2 CHB Found to be in complete heart block on EKG with diffuse T wave inversion at presentation. Initial troponin: 11.7, TSH: 2.[address] Head: No acute intracranial abnormality or calvarial fracture. Small left scalp hematoma. History echo on 02/10/22: EF 60-65%, mod LVH, LA mod dilated, grade 1 diastolic dysfunction, trace MR, TR Taken to cath lab nurse and temporary pacemaker placed 03/28. Coronary angiography with moderate nonobstructive coronary artery disease 60% mid LAD after takeoff of bifurcating D1, 50% mid circumflex, 40 to 50% earlymid RCA. 03/29 ECHO: EF 60 to 65%, abnormal septal motion consistent with LBBB. LV systoli c function normal. Normal LV size. Complete heart block less likely secondary to ischemia (non culprit mild to mod. CAD during cath), hence temporary pacemaker removed and permanent pacemaker placed by Dr Gilmore 03/28. f/u CXR w/o PTX. Lyme IgG positive, IgM equivocal. Western blot pending. Since also concern of lyme carditis (given Pt lives in the [facility], no prior lyme test, but no EM on exam, no prior tick bite reported), will do rocephin 2 g iv daily. She does also have established h/o cardiac conduction system disease w/ LBBB found during hospital stay in January,; so also concern for age related conduction system disease and hence was proceeded w/ permanent pacer placement on 03/28. Pt w/o chest pain, dizziness. Tele w/ SR in 70s. Hold off beta jae for now per cardio. Aspirin on hold given recent anemia. Start statin. d/w cardio. #. Possible Lyme Disease No known tick bite reported Lyme IgG positive, IgM equivocal. Western blot pending Start rocephin 03/29, transition to oral doxy upon DC #. UTI UA s/o UTI, UCx GNB, f/u final results Pt on rocephin for other reason (see above) #. Recent history Community acquired pneumonia, Acute Hypoxic Respiratory Failure 01/2022: CTA Chest: No PE, patchy bilateral ground glass densities with ill defined consolidative opacities in RUL, bronchial wall thickening with mucous plugging. Was treated with Levaquin and doxycycline #. Iron deficiency anemia: 01/2022: Hgb: 7.6 with iron deficiency anemia on labs. Received IV iron, 1 unit PRBC. 03/20/22 outpatient labs with improvement with ferritin up to 68 from 9 and Hgb: 11.5. At presentation Hgb: 11.4 On iron supplement #. Other chronic medical conditions: HTN, HLD [prescribed simvastatin, has not been taking it for months], RLS [on ropinirole and gabapentin], LBBB Continue with/resume home meds as and when appropriate. #. DVT Prophylaxis: SCDs Full Code Follows with Jolanta Fermin PA-C for routine care Admission and Anticipated Discharge Date Admission Date: March 28, 2022 Subjective Patient seen and examined at bedside as a follow-up of syncope and collapse likely secondary to third-degree heart block on the background of possible Lyme disease. Patient was lying in bed, on room air, NAD, no new acute events overnight. Patient reports eating and moving bowels okay. Patient denies any chest pain or headache or dizziness or feeling of heart racing or belly pain or recent new skin rash anywhere in the body or any numbness or tingling anywhere in the body or any joint pain or other review of symptoms. Telemetry reveals sinus rhythm in 70s. Physical Exam Physical Exam: GENERAL: Alert and oriented x3. NAD, on RA. HEENT: No pallor, no icterus. Pupils equal, round and reactive to light. Oral mucosa moist. Left scalp hematoma small. NECK: No JVD, no neck masses. HEART: S1 and S2 heard. Regular rate and rhythm. No murmur, no gallop. RESPIRATORY SYSTEM: Normal AP diameter. No accessory muscle use. No wheezing, no crackles. ABDOMEN: Soft, bowel sounds present, nontender, no distention. CENTRAL NERVOUS SYSTEM: No facial droop. Speech is clear. Obeys simple commands. Moves extremities. EXTREMITIES: No edema, no erythema seen. Right groin with clean dressing over the cath access site. Left chest with clean dressing without soakage noted over operative site. Results & Data Results & Data ([facility]) Vital Signs (Past 12 Hours) Vital Signs Temp Pulse Pulse Resp BP Pulse Ox 03/29/22 15:02 76 03/29/22 10:50 36.6 C 67 17 155/76 H 94 03/29/22 07:37 36.4 C L 68 19 171/82 H 97
[2022-03-29] MEDS: GABAPENTIN 100 MG CAP PO SCH (20:24)
[2022-03-29] MEDS: GABAPENTIN 300 MG CAP PO SCH (20:24)
[2022-03-30] MEDS: FERROUS SULFATE 325 MG TAB PO SCH (06:06)
[2022-03-30] MEDS: CYANOCOBALAMIN (B-12) 500 MCG TABLET PO SCH (07:55)
[2022-03-30] MEDS: rOPINIRole HCL 1 MG TABLET PO SCH ×3 (07:55→20:36)
[2022-03-30] MEDS: ATORVASTATIN 10 MG TAB PO SCH (07:55)
[2022-03-30] MEDS: lisinopril 5 MG TAB PO SCH (07:55)
[2022-03-30] MEDS: cefTRIAXone SODIUM 2,000 MG in DEXTROSE 5% 50 ML IV SCH (07:58)
[2022-03-30 08:25] LABS: Hemoglobin 10.9 g/dL (12.0-16.0); Mean Corpuscular Hemoglobin 24.9 pg (25-34); Mean Corpuscular Hgb Conc 28.7 g/dL (32-36); Mean Corpuscular Volume 86.8 fL (80-100); Mean Platelet Volume 9.7 fL (7.4-10.4); Platelet Count 358 K/uL (130-400); RDW Coefficient of Variation 23.5 % (11.5-14.5); Red Blood Count 4.38 M/uL (4.2-5.4); White Blood Count 9.43 K/uL (4.8-10.8)
[2022-03-30 08:46] LABS: BUN Creatinine Ratio 14.8 (10-20); Calcium 9.6 mg/dl (8.5-10.1); Est GFR (African American) 78.9 ml/min; Est GFR (Non-African American) 68.1 ml/min; Magnesium 1.9 mg/dl (1.7-2.4); Potassium 3.6 mmol/L (3.5-5.1)
--- NOTE | 2022-03-30 16:25 | Hospitalist Progress Note ---
Date of Service March 30, 2022 Assessment & Plan (1) Syncope and collapse: (2) Third degree atrioventricular block: Plan: 81-year-old female with PMH of RLS, dyslipidemia, HTN, LBBB presented to ER 03/28 for syncopal episode on the day of arrival while shopping. She is being managed for the following: #. Third-degree heart block #. Syncope and collapse #. Mild Pul edema: likely 2/2 CHB Found to be in complete heart block on EKG with diffuse T wave inversion at presentation. Initial troponin: 11.7, TSH: 2.[address] Head: No acute intracranial abnormality or calvarial fracture. Small left scalp hematoma. Echo on 02/10/22: EF 60-65%, mod LVH, LA mod dilated, grade 1 diastolic dysfunction, trace MR, TR Taken to component lab tech and temporary pacemaker placed 03/28. Coronary angiography with moderate nonobstructive coronary artery disease 60% mid LAD after takeoff of bifurcating D1, 50% mid circumflex, 40 to 50% earlymid RCA. 03/29 ECHO: EF 60 to 65%, abnormal septal motion consistent with LBBB. LV systolic function normal. Normal LV size. Complete heart block less likely secondary to ischemia (non culprit mild to mod. CAD during cath), hence temporary pacemaker removed and permanent pacemaker placed by Dr Gilmore 03/28. f/u CXR w/o PTX. Lyme IgG positive, IgM equivocal. Western blot pending. Since also concern of lyme carditis (given Pt lives in the [facility], no prior lyme test, but no EM on exam, no prior tick bite reported), will do rocephin 2 g iv daily f/b doxy for total of 21 days. She does also have established h/o cardiac conduction system disease w/ LBBB found during hospital stay in January,; so also concern for age related conduction system disease and hence was proceeded w/ permanent pacer placement on 03/28. Pt w/o chest pain, dizziness. Tele w/ SR in 70-80s. Hold off beta jae for now per cardio. Aspirin on hold given recent anemia. Started on statin. d/w cardio. #. Possible Lyme Disease No known tick bite reported, no skin rash noted. Lyme IgG positive, IgM equivocal. Western blot pending Start rocephin 03/29, transition to oral doxy upon DC; total atb for 21 days. #. UTI UA s/o UTI, UCx GNB, f/u final results Pt on rocephin for other reason (see above) Will complete 3 days after tomorrow's dose. #. Recent history Community acquired pneumonia, Acute Hypoxic Respiratory Failu re 01/2022: CTA Chest: No PE, patchy bilateral ground glass densities with ill defined consolidative opacities in RUL, bronchial wall thickening with mucous plugging. Was treated with Levaquin and doxycycline #. Iron deficiency anemia: 01/2022: Hgb: 7.6 with iron deficiency anemia on labs. Received IV iron, 1 unit PRBC. 03/20/22 outpatient labs with improvement with ferritin up to 68 from 9 and Hgb: 11.5. At presentation Hgb: 11.4 On iron supplement #. Other chronic medical conditions: HTN, HLD [prescribed simvastatin, has not been taking it for months], RLS [on ropinirole and gabapentin], LBBB Continue with/resume home meds as and when appropriate. #. DVT Prophylaxis: SCDs Full Code Follows with Jolanta Fermin PA-C for routine care Dispo: Likely DC tomorrow on oral doxy and w/ card recs, card f/u and pcp f/u. Admission and Anticipated Discharge Date Admission Date: March 28, 2022 Subjective Patient seen and examined at bedside as a follow-up of syncope and collapse likely secondary to third-degree heart block on the background of possible Lyme disease. Patient was lying in bed, on room air, NAD, no new acute events overnight. Patient reports eating and moving bowels okay. Patient denies any chest pain or headache or dizziness or feeling of heart racing or belly pain or recent new skin rash anywhere in the body or any numbness or tingling anywhere in the body or any joint pain or other review of symptoms. Telemetry reveals sinus rhythm in 70-80s. Physical Exam Physical Exam: GENERAL: Alert and oriented x3. NAD, on RA. HEENT: No pallor, no icterus. Pupils equal, round and reactive to light. Oral mucosa moist. Left scalp hematoma small. NECK: No JVD, no neck masses. HEART: S1 and S2 heard. Regular rate and rhythm. No murmur, no gallop. RESPIRATORY SYSTEM: Normal AP diameter. No accessory muscle use. No wheezing, no crackles. ABDOMEN: Soft, bowel sounds present, nontender, no distention. CENTRAL NERVOUS SYSTEM: No facial droop. Speech is clear. Obeys simple commands. Moves extremities. EXTREMITIES: No edema, no erythema seen. Right groin with clean dressing over the cath access site. Left chest with clean dressing without soakage noted over operative site. Results & Data Results & Data ([facility]) Vital Signs (Past 12 Hours) Vital Signs Temp Pulse Pulse Resp BP Pulse Ox 03/30/22 15:52 36.3 C L 82 20 146/69 H 95 03/30/22 15:10 85 03/30/22 11:55 36.3 C L 74 20 147/76 H 94 03/30/22 08:04 36.4 C L 79 20 128/55 L 96 03/30/22 07:14 80
--- NOTE | 2022-03-30 19:53 | Cardiology Progress Note ---
Date of Service March 30, 2022 Assessment & Plan (1) Syncope and collapse: (2) Third degree atrioventricular block: (3) LBBB (left bundle branch block): (4) Pacemaker: (5) UTI (urinary tract infection): (6) CAD (coronary artery disease): Plan: 81 year old female (1) Syncope and collapse, (2) Intermittent third degree atrioventricular block, (3) LBBB (left bundle branch block) prompting implantation of dual chamber Medtronic Permanent Pacemaker, RA lead, and HIS bundle lead, 03/28/22 -Device check 03/29/2022 revealedstable function. -CXR without PTX, mild interstitial edema. - outpt wound check , device check in 7-10 days. Follow up with Dr De Leon or other provider in 1-2 weeks. (5) CAD (coronary artery disease): Non culprit moderate CAD for which medical management recommended. Moderate nonobstructive coronary artery disease -60% mid LAD after takeoff of bifurcating D1 50% mid circumflex 40 to 50% earlymid RCA Pt without angina. EKG performed 03/30/2022 reveals normal sinus rhythm at 73 bpm, left bundle branch block, QRS duration 144 ms. Echo 01/2022 , normal LVEF, abnormal septal motion consistent with LBBB. For now, hold off on aspirin therapy given recent anemia, Hgb down to 7.4 in January. Hold off on beta jae as came in with bradycardia, and although now has pacer, would like to encourage underlying rhythm. Continue lisinopril. Start statin therapy, LDL 145 Sep 2021. Furosemide 20 mg x 1 to optimize volume status. - outpt wound check , device check in 7-10 days. Follow up with Dr De Leon or other provider in 1-2 weeks. (6) Lyme serology performed on admission reveals IgG positivity, IgM equivocal, Western blot currently pending. Patient lives in an endemic area, but has had no recent known tick bite, no febrile illness, no rash. Currently on Rocephin, pending Western blot, plan to discharge on doxycycline to complete 21-day course of antibiotics, unless Western blot suggests otherwise. At this time, patient felt to have the likelihood of Lyme carditis as a cause of her syncope. She has a longstanding history of left bundle branch block which would indicate underlying conduction system disease, first noted in 2014. And has had recurrent episodes of dizziness/syncope dating back to 2013. (7) E. coli UTI Sensitive to Rocephin DISPOSITION: Reassess after discharge 03/31/2022. But then she will have completed 3 days of Rocephin with regards to the UTI, and equivocal Lyme test. Appointments with regards to pacemaker checks already made. Pacemaker/wound care already in her discharge document. Dr. Eduardo wylie 03/31/2022 Admission and Anticipated Discharge Date Admission Date: March 28, 2022 Subjective Patient feeling well. Denies chest discomfort or shortness of breath. Physical Exam Constitutional: WD/WN, vitals as above Respiratory: normal respiratory effort, lungs clear to auscultation Cardiovascular: RRR, no murmur, no edema Rate/Rhythm: + bradycardic Heart Sounds: no murmur Extremities: no edema Gastrointestinal (Abdomen): normal bowel sounds, soft, nontender, no hepatosplenomegaly Neurologic: PERRL, EOMI, accommodation nl, no face palsy, no dysarthria Results & Data ([facility]) Vital Signs (Past 12 Hours) Vital Signs Temp Pulse Pulse Resp BP Pulse Ox 03/30/22 15:52 36.3 C L 82 20 146/69 H 95 03/30/22 15:10 85 03/30/22 11:55 36.3 C L 74 20 147/76 H 94 03/30/22 08:04 36.4 C L 79 20 128/55 L 96 Laboratory Results CBC 03/30/22 Range/Units 07:08 WBC 9.43 (4.8-10.8) K/uL RBC 4.38 (4.2-5.4) M/uL Hgb 10.9 L (12.0-16.0) g/dL Hct 38.0 (37-47) % Plt Count 358 (130-400) K/uL Comprehensive Metabolic Panel 03/30/22 Range/Units 07:08 Sodium 135 L (136-145) mmol/L Potassium 3.6 (3.5-5.1) mmol/L Chloride 98 (98-107) mmol/L Carbon Dioxide 31 (21-32) mmol/L BUN 12 (6-23) mg/dl Creatinine 0.81 (0.6-1.2) mg/dl Glucose 106 H (70-99(Fasting)) mg/dl Calcium 9.6 (8.5-10.1) mg/dl Intake and Output 03/30/22 03/30/22 03/30/22 06:59 14:59 22:59 Intake Total 100 / 1216.667 550 / 550 Balance 100 / 1216.667 550 / 550 Intake: IV 70 / 70 cefTRIAXone SODIUM 2,000 mg In 70 / 70 Dextrose 5% 50 ml @ 140 mls/hr IV DAILY [facility] Rx#:[id number] Oral 100 / 1140 480 / 480 Other: Weight 65.4 kg Urinalysis 03/28/2022, positive for E. coli
[2022-03-30] MEDS: GABAPENTIN 300 MG CAP PO SCH (20:36)
[2022-03-30] MEDS: GABAPENTIN 100 MG CAP PO SCH (20:36)
[2022-03-31] MEDS: FERROUS SULFATE 325 MG TAB PO SCH (05:58)
[2022-03-31] MEDS: cefTRIAXone SODIUM 2,000 MG in DEXTROSE 5% 50 ML IV SCH (08:40)
[2022-03-31] MEDS: CYANOCOBALAMIN (B-12) 500 MCG TABLET PO SCH (08:40)
[2022-03-31] MEDS: ATORVASTATIN 10 MG TAB PO SCH (08:40)
[2022-03-31] MEDS: rOPINIRole HCL 1 MG TABLET PO SCH (08:40)
[2022-03-31] MEDS: lisinopril 5 MG TAB PO SCH (08:41)
--- NOTE | 2022-03-31 12:34 | Discharge Summary ---
Date of Service March 31, 2022 Admission HPI Per Admitting Provider Patient is 81-year-old female with PMH RLS, dyslipidemia, HTN, LBBB presented to ER for syncopal episode today while shopping. Reported felt nauseated and had sudden syncopal episode resulting in fall and lasting approximately one minute. EMS had noted complete heart block on EKG and patient was given Zofran for nausea. Denied chest pain or shortness of breath. In ER patient afebrile, HR 28- 45, BP: 149/49, 90% on RA. EKG complete heart block, rate 30, T wave inversions. Lyme titer pending. Patient emergently taken to skill labor placement for temporary pacemaker and coronary angiography and if no significant stenosis will likely need permanent pacemaker placement today. Admission Exam Per Admitting Provider General: no distress, WDWN Head: normocephalic, atraumatic Eyes: conjunctiva non-injected, anicteric ENT: normal inspection external ears, nose, mucous membranes moist Neck: supple, trachea midline Lungs: clear, no respiratory distress, no wheezing/rhonchi/rales CV: RRR, chest wall: left upper chest with surgical dressing in place and is dry, no pretibial edema Abd: normal BS, soft, non-tender Ext: no cyanosis, no calf tenderness, right radial wrist with band in place without noted bleeding, right groin with dressing in place and dry Neuro: A&O x 3, no focal deficits noted, normal affect Skin: warm, dry Principal Diagnosis Complete heart block, possible lyme carditis, UTI Discharge Exam General: Sitting comfortably in chair, not in distress, on room air HEENT: EOMI, ROSY, MMM Chest: Incision site clean dry intact well approximated; Clear breath sounds bilaterally, no wheezes or crackles CVS: Regular rate and rhythm, normal heart sounds, no murmur Abdomen: Soft, non tender, not distended, normal bowel sounds Neuro: Awake, alert, oriented, conversing well, non focal Extremities: No cyanosis, clubbing or edema Discharge Data Allergies Allergy/AdvReac Type Severity Reaction Status Date / Time Penicillins Allergy Intermediate RASH Verified 02/09/22 11:10 Consultations 03/28/22 15:59 Consult Cardiology Routine Procedures Performed Operation Date: 03/28/22 12:30 Actual Procedures p Cineradiography w/Routine Exam - Tolu Manzano MD s Ins/RemTemporary Transvenous Pacer - Tolu Manzano MD s Cath, Left with Cors and Vent - Tolu Manzano MD s Ultrasound Vascular Access - Tolu Manzano MD s Bundle of his Recording - Angie Gilmore, s Pacer with A/V Leads (Dual) - Angie Gilmore, Ordered Studies 03/28/22 12:06 CT head/brain wo con Stat 03/28/22 12:33 CL Cath Imgs for PACS use only Stat Laboratory Results WBC 9.43 K/uL (4.8-10.8) 03/30/22 07:08 RBC 4.38 M/uL (4.2-5.4) 03/30/22 07:08 Hgb 10.9 g/dL (12.0-16.0) L 03/30/22 07:08 POC Hgb 13.9 g/dl (12.0-16.0) 03/28/22 12:07 Hct 38.0 % (37-47) 03/30/22 07:08 POC Hct 41 % (37-47) 03/28/22 12:07 MCV 86.8 fL (80-100) 03/30/22 07:08 MCH 24.9 pg (25-34) L 03/30/22 07:08 MCHC 28.7 g/dL (32-36) L 03/30/22 07:08 RDW Std Deviation 74.0 fL (36.4-46.3) H 03/30/22 07:08 RDW Coeff of Francia 23.5 % (11.5-14.5) H 03/30/22 07:08 Plt Count 358 K/uL (130-400) 03/30/22 07:08 MPV 9.7 fL (7.4-10.4) 03/30/22 07:08 Immature Gran % (Auto) 0.3 % 03/29/22 06:04 Neut % (Auto) 64.1 % 03/29/22 06:04 Lymph % (Auto) 22.9 % 03/29/22 06:04 Crawford % (Auto) 7.2 % 03/29/22 06:04 Eos % (Auto) 5.4 % 03/29/22 06:04 Baso % (Auto) 0.1 % 03/29/22 06:04 Neut # (Auto) 5.84 K/uL (1.4-6.5) 03/29/22 06:04 Lymph # (Auto) 2.09 K/uL (1.2-3.4) 03/29/22 06:04 Crawford # (Auto) 0.66 K/uL (0.11-0.59) H 03/29/22 06:04 Eos # (Auto) 0.49 K/uL (0-0.5) 03/29/22 06:04 Baso # (Auto) 0.01 K/uL (0-0.2) 03/29/22 06:04 Immature Gran # (Auto) 0.03 K/uL (0.00-0.02) H 03/29/22 06:04 Hypochromasia Present 03/28/22 12:00 Poikilocytosis Present 03/29/22 06:04 Microcytosis Present 03/28/22 12:00 PT 10.3 Seconds (9.0-12.0) 03/28/22 12:00 INR 1.0 (0.9-1.1) 03/28/22 12:00 APTT 25.9 Seconds (21.0-31.0) 03/28/22 12:00 PTT Ratio 0.9 03/28/22 12:00 POC Sodium 139 mmol/L (135-144) 03/28/22 12:07 Sodium 135 mmol/L (136-145) L 03/30/22 07:08 POC Potassium 4.0 mmol/L (3.3-5.0) 03/28/22 12:07 Potassium 3.6 mmol/L (3.5-5.1) 03/30/22 07:08 POC Chloride 105 mmol/L (101-112) 03/28/22 12:07 Chloride 98 mmol/L (98-107) 03/30/22 07:08 Carbon Dioxide 31 mmol/L (21-32) 03/30/22 07:08 POC Total CO2 24 mmol/L (24-31) 03/28/22 12:07 Anion Gap 6 (3-11) 03/30/22 07:08 POC Anion Gap 16.0 mmol/L (16-25) 03/28/22 12:07 POC BUN 17 mg/dl (7-18) 03/28/22 12:07 BUN 12 mg/dl (6-23) 03/30/22 07:08 Creatinine 0.81 mg/dl (0.6-1.2) 03/30/22 07:08 POC Creatinine 0.9 mg/dl (0.6-1.3) 03/28/22 12:07 Est Cr Clr Drug Dosing 49.0 ml/min 03/30/22 07:08 Est GFR ( Amer) 78.9 ml/min 03/30/22 07:08 Est GFR (Non-Af Amer) 68.1 ml/min 03/30/22 07:08 BUN/Creatinine Ratio 14.8 (10-20) 03/30/22 07:08 Glucose 106 mg/dl (70-99(Fasting)) H 03/30/22 07:08 POC Glucose (other) 132 mg/dl (70-99) H 03/28/22 12:07 Calcium 9.6 mg/dl (8.5-10.1) 03/30/22 07:08 POC Ioniz Calcium Consuelo 1.25 mmol/l (1.12-1.32) 03/28/22 12:07 Magnesium 1.9 mg/dl (1.7-2.4) 03/30/22 07:08 Total Bilirubin 0.4 mg/dl (0.2-1.0) 03/28/22 12:00 AST 16 U/L (13-39) 03/28/22 12:00 ALT 10 U/L (7-52) 03/28/22 12:00 Alkaline Phosphatase 79 U/L (34-104) 03/28/22 12:00 Troponin I High Sens 11.7 pg/ml (0-14) 03/28/22 12:00 Total Protein 7.9 gm/dl (6.0-8.3) 03/28/22 12:00 Albumin 4.3 gm/dl (3.4-5.0) 03/28/22 12:00 Globulin 3.6 gm/dl (2.5-4.0) 03/28/22 12:00 Albumin/Globulin Ratio 1.2 (0.9-2) 03/28/22 12:00 TSH 2.973 uIu/ml (0.300-4.500) 03/28/22 12:00 Urine Color Yellow 03/28/22 Unknown Urine Appearance Clear (Clear) 03/28/22 Unknown Urine pH 5.0 (4.5-7.5) 03/28/22 Unknown Ur Specific [place] 1.031 (1.000-1.030) H 03/28/22 Unknown Urine Protein Negative (Negative) 03/28/22 Unknown Urine Glucose (UA) Negative (Negative) 03/28/22 Unknown Urine Ketones Negative (Negative) 03/28/22 Unknown Urine Blood Negative (Negative) 03/28/22 Unknown Urine Nitrite Positive (Negative) A 03/28/22 Unknown Urine Bilirubin Negative (Negative) 03/28/22 Unknown Urine Urobilinogen Negative (Negative) 03/28/22 Unknown Ur Leukocyte Esterase Trace (Negative) H 03/28/22 Unknown Urine WBC (Auto) 5-10 /hpf (0-5) H 03/28/22 Unknown Urine RBC (Auto) 0-4 /hpf (0-4) 03/28/22 Unknown U Hyaline Cast (Auto) 1-5 /lpf (0-5) 03/28/22 Unknown U Epithel Cells (Auto) 10-20 /lpf (0-5) H 03/28/22 Unknown Urine Bacteria (Auto) 4+ (Negative) H 03/28/22 Unknown Lyme Disease IgG Ab Positive (Negative) A 03/28/22 12:00 Lyme Disease IgM Ab Equivocal (Negative) A 03/28/22 12:00 SARS-CoV-2, RNA, NAAT NEGATIVE (NEGATIVE) 03/28/22 12:[address] 03/28/22 12:06 CT head/brain wo con CLINICAL HISTORY: 81 years-old Female with fall, syncope. Acute syncope status post fall TECHNIQUE: Multiple axial CT images of the head were obtained without contrast. A dose lowering technique was utilized adhering to the principles of ALARA. CT DOSE: 537.48 mGy.cm COMPARISON: CTA head 05/11/2016 FINDINGS: No acute intracranial hemorrhage, midline shift, intracranial mass, hydrocephalus, territorial ischemia or abnormal extra-axial collection. Age- related involutional changes. White matter hypodensities suggestive of chronic microvascular ischemic disease. Cerebral vascular calcifications. No acute calvarial fracture. Left temporal parietal scalp hematoma measures 4.5 cm. The paranasal sinuses, mastoid air cells, and middle ear cavities are clear. IMPRESSION: 1. No acute intracranial abnormality or calvarial fracture. 2. Small left scalp hematoma. ACT 112: Negative or not required by law. The above report was generated using voice recognition software. It may contain grammatical, syntax or spelling errors. Electronically signed by: Jas Garcia M.D. 03/28/2022 12:39 PM Chest X-Ray 03/28/22 17:00 XR chest 1V portable CLINICAL HISTORY: s.p ppm ensure no ptx COMPARISON STUDY: Chest CT February 09, 2022. Chest radiograph March 28, 2022 at 12:06 pm. FINDINGS: There is no pneumothorax following placement of a dual lead left subclavian pacemaker. Lead positions are suboptimally assessed given lack of lateral projection. Cardiomegaly is again noted as well as a large hiatal hernia. No pleural effusion is identified. Suspected pulmonary edema has slightly progressed. IMPRESSION: 1. No pneumothorax following placement of a dual-lead left subclavian pacemaker. 2. Slight progression of pulmonary edema. ACT 112: Negative or not required by law. Electronically signed by: Yaya Camacho M.D. 03/28/2022 5:05 PM Hospital Course (1) Syncope and collapse: (2) Third degree atrioventricular block: 81-year-old female with PMH of RLS, dyslipidemia, HTN, LBBB presented to ER 03/28 for syncopal episode on the day of arrival while shopping. She is being managed for the following: #. Third-degree heart block with syncope and collapse- possible lyme carditis Found to be in complete heart block on EKG with diffuse T wave inversion at presentation. Initial troponin: 11.7, TSH: 2.[address] Head: No acute intracranial abnormality or calvarial fracture. Small left scalp hematoma. Echo on 02/10/22: EF 60-65%, mod LVH, LA mod dilated, grade 1 diastolic dysfunction, trace MR, TR Taken to skill labor and temporary pacemaker placed 03/28. Coronary angiography with moderate nonobstructive coronary artery disease 60% mid LAD after takeoff of bifurcating D1, 50% mid circumflex, 40 to 50% earlymid RCA. 03/29 ECHO: EF 60 to 65%, abnormal septal motion consistent with LBBB. LV systolic function normal. Normal LV size. Complete heart block less likely secondary to ischemia (non culprit mild to mod. CAD during cath), hence temporary pacemaker removed and permanent pacemaker placed by Dr Gilmore 03/28. Lyme IgG positive, IgM equivocal. Western blot pending. Since also concern of lyme carditis (given Pt lives in the [facility], no prior lyme test, but no rash on exam, no prior tick bite reported), S/p rocephin for 3 days and being discharged on doxycycline for 18 more days per cardiology- F/u with cardio or PCP regarding final Western blot results for further antibiotic management She does also have established h/o cardiac conduction system disease w/ LBBB found during hospital stay in January,; so also concern for age related conduction system disease and hence was proceeded w/ permanent pacer placement on 03/28. Patient currently asymptomatic- no chest pain, dizziness. Tele with sinus rhythm in 70-80s. Hold off beta jae for now per cardio. Aspirin on hold given recent anemia but Hb has rebound since then. Started on statin. d/w cardio. #. Possible Lyme disease- No known tick bite reported, no skin rash noted. Lyme IgG positive, IgM equivocal. Western blot pending Start rocephin 03/29, transition to oral doxy upon DC; total course for 21 days. #. Mild Pul edema 11/29 CHB- resolved #. UTI- urine clx 03/28 with E coli sensitive to cephalosporins. S/p iv rocephin for 3 days. Given recently placed pacemaker in place, will complete total of 5 days of ABx course with vantin for 2 more days to prevent pacer infection. #. Recent history Community acquired pneumonia, Acute Hypoxic Respiratory Failure 01/2022: CTA Chest: No PE, patchy bilateral ground glass densities with ill defined consolidative opacities in RUL, bronchial wall thickening with mucous plugging. Was treated with Levaquin and doxycycline #. Iron deficiency anemia: 01/2022: Hgb: 7.6 with iron deficiency anemia on labs. Received IV iron, 1 unit PRBC. 03/20/22 outpatient labs with improvement with ferritin up to 68 from 9 and Hgb: 11.5. - on iron supplement- recommended to hold while on doxycycline #. HTN- on low dose lisinopril # RLS- on ropinirole and gabapentin # HLD- started on lipitor Total Time Total Time Spent Total Time Spent (In Minutes): 40 Discharge Plan Discharge Items Patient Disposition: Home - Self-Care Reason For Visit: SYNCOPE Discharge Diagnosis: Syncope, CHB s/p pacemaker, Suspected lyme carditis Activity: As commented below Activity Comment: keep dressing on & dry until wound check next week Lifting: No more than 10 pounds Lifting Comment: do not lift more than 10 pounds with the left arm for 2 weeks Bathing: Keep incision dry Bathing Comment: keep dressing on & dry until wound check next week Non-emergency contact: Primary Care Provider and Criminal Justice Teacher Call non-emergency contact if: you have any medication questions, your symptoms worsen, your pain is concerning for you and you have a fever Follow-up/Referrals: Jolanta Fermin PA-C [Primary Care Provider] - Diet: Heart Healthy Becca Attending Provider Instructions: device and wound check at [facility] next week Continue vantin twice daily starting tomorrow morning for next 2 days for urinary tract infection Continue doxycycline for possible lyme disease for the next 18 days- Follow up with cardiology or family doctor regarding the final lyme test and further instruction on the doxycycline Avoid iron or magnesium pills while on doxycyline to prevent interactions Addtl Drafter Commercial Provider Instructions: FOLLOW UP CARDIOLOGY VISITS: 04/05/2022 1:00 PM WOUND CHECK [facility] PACEMAKER INTERROGATION Pac[facility] 04/13/2022 11:00 AM , 10:45 AM ARRIVAL TIME, Kevin Gary, Cardiology, [facility] Pending Studies at Discharge: Yes Studies:: Western blot for lyme Stand-Alone Forms: My [facility] [employer], Smoking Cessation Medications and DC Order Prescriptions: New cefpodoxime 200 mg tablet 200 mg PO Q12H Qty: 4 RF: 0 doxycycline hyclate 100 mg tablet 100 mg PO BID 18 Days Qty: 36 RF: 0 atorvastatin [Lipitor] 10 mg tablet 10 mg PO DAILY Qty: 30 RF: 0 Continued cyanocobalamin (vitamin B-12) 1,000 mcg Tablet 1,000 mcg PO DAILY RF: 0 ropinirole 3 mg tablet 3 mg PO TID RF: 0 gabapentin 300 mg capsule 300 mg PO HS RF: 0 lisinopril 5 mg tablet 5 mg PO DAILY RF: 0 gabapentin 100 mg capsule 200 mg PO HS RF: 0 ferrous sulfate 325 mg (65 mg iron) Tablet 325 mg PO DAILY RF: 0 Discharge Orders: Discharge Order (Routine); Ordered 03/31/22 Ordered By: Jj Evans/Other Patient Handouts: Pacemakers, Living with a Pacemaker, Cardiac Catheterization Dc, Pacemaker Implant Dc Admission Data Admit Date/Time: 03/28/22 14:25 Attending Provider: Jj Rangel Admit Provider: Jj Rangel Primary Care Provider: Jolanta Fermin Other Providers: Jesse De Leon Other Interventions: Discharge Summary Assessment (RN) Last Done: 03/31/22 10:47
--- NOTE | 2022-04-01 07:55 | Electrocardiogram Report ---
Test Reason : Blood Pressure : / mmHG Vent. Rate : 073 BPM Atrial Rate : 073 BPM P-R Int : 168 ms QRS Dur : 144 ms QT Int : 428 ms P-R-T Axes : 025 -36 134 degrees QTc Int : 471 ms Normal sinus rhythm Left axis deviation Left bundle branch block Abnormal ECG When compared with ECG of 29-MAR-2022 05:37, No significant change was found Confirmed by Lester Aponte ([id number]) on 04/01/2022 7:54:58 AM Referred By: REFERRED SELF Confirmed By:Lester Aponte
[2022-04-02 13:22] LABS: 18KDIGG Band REACTIVE; 23KDIGG Band REACTIVE; 23KDIGM Band REACTIVE; 28KDIGG Band REACTIVE; 30KDIGG Band REACTIVE; 39KDIGG Band REACTIVE; 39KDIGM Band NON-REACTIVE; 41KDIGG Band REACTIVE; 41KDIGM Band NON-REACTIVE; 45KDIGG Band REACTIVE; 58KDIGG Band REACTIVE; 66KDIGG Band REACTIVE; 93KDIGG Band REACTIVE; Lyme Antibodies, WB IgG POSITIVE (NEGATIVE); Lyme Antibodies, WB IgM NEGATIVE (NEGATIVE)
--- NOTE | 2022-04-08 23:46 | Operative Report (OR) ---
DATE OF PROCEDURE: 03/28/2022. PREOPERATIVE DIAGNOSIS: Complete heart block. POSTOPERATIVE DIAGNOSIS: Complete heart block. PROCEDURE: Dual chamber rate responsive permanent pacemaker implantation along with the transvenous pacemaker removal. SURGEON: Angie Gilmore DO QUILLER TENDER: None. ANESTHESIA: Monitored conscious sedation administered under my supervision by Anushka Burleson. Sta rt time 13:56, end time 14:47. A total of 3 mg of Versed, 50 mcg of fentanyl. INTRAVENOUS FLUIDS: 100 mL. BLOOD LOSS: 50 mL. ANTIBIOTICS: 600 mg of clindamycin. COMPLICATIONS: None. CONDITION: Stable. URINE OUTPUT: Not applicable. SPECIMENS: None. FINDINGS: See below. DRAINS: None. INDICATIONS: This is an 81-year-old female with a past medical history for left bundle-branch block, hypertension, iron deficiency anemia, coronary artery disease as per the medical chart. She presente d to [facility], found to be in complete heart block. She first underwent a cardia c catheterization, which revealed no CAD and a transvenous pacemaker was placed through the right fem oral groin at that time. Then, we did an urgent pacemaker. CONSENT: Consent was obtained prior to the start of the procedure. I spoke to the patient's , who provided consent. I explained to him the possible risks include, but not limited to, sudden ca rdiac , cardiac arrhythmia, cerebrovascular accident, myocardial infarction, injury to the blood vessels, chamber of the heart and lung, bleeding and infection. He expressed understanding and sign ed the consent. DESCRIPTION OF PROCEDURE: The patient was connected to continuous cardiac monitoring in the catheter ization lab. She was prepped and draped over the left infraclavicular space in a normal surgical sta ndard fashion. Monitored conscious sedation was given throughout the procedure for patient's comfort level. Donie precautions were maintained throughout the procedure. She received prophylactic a ntibiotics prior to incision. 10 mL of 1% lidocaine-bupivacaine mixture was given in the left deltopectoral groove. Incision was m marco in the left deltopectoral groove. Blunt dissection was performed down to the cephalic vein. Cep halic vein was identified and isolated using 0 silk ties. The vein was nicked with 11 blade and a gu idewire was inserted without any resistance. A 7-Pakistani sheath was inserted over the guidewire witho ut any resistance. Dilator was removed and a second guidewire was inserted through the sheath to all ow for retained venous access. Sheath was removed, flushed, reinserted over the dilator, then reinse rted one of the guidewires. The guidewire and dilator were removed. Then, the His C315 sheath was a dvanced over a Glidewire through the 7-Pakistani sheath into the right ventricle. The Glidewire and dil ator were removed. Then, the left bundle pacing lead was advanced through the sheath and I had the kirsten batesera in PETERS 10, I estimated at about where my His bundle recordings were, based on my A:V ratios the n moved the camera into PETERS 30 and marked where I thought the His bundle was on my fluoroscopy screen , came down about 2 cm from this in that would extend out to the apex, came on pacing and found that I had a nice W formed pacing pattern in V1. I then moved the camera to SON 30, started giving a seri es of clockwise turns to screw the lead into the septum, pausing once in a while to see how my pacing complex changed. Ultimately I developed a pretty good R prime in V1 and a nice impedance drop. I ga ve contrast through the sheath to see how I was well into the septum. I then slit the His C315 sheat h under fluoroscopic guidance and kept the 7-Pakistani sheath in while I placed a right atrial lead. A second 7-Pakistani sheath was advanced over the retained guidewire, the guidewire and dilator were rem godwin. The right atrial lead was then advanced into right atrium and positioned into the atrial appen dage under fluoroscopic guidance. There was adequate pacing and sensing thresholds and no diaphragma tic stimulation with high output pacing. The 7-Pakistani sheath was peeled away and the lead was fixate d to pectoralis muscle using 0 silk suture. A 7-Pakistani sheath around the left bundle lead was peeled away and the lead was fixated to pectoralis muscle using 0 silk suture. A pursestring was placed around the venous puncture site using a 2-0 Rodrí[address]yl on a CT needle to prevent any further backbleeding. Then the pacemaker pocket was created using blunt dissection over the pectoralis muscle and then the pectoralis fascia. The pocket was flushed w ith copious amounts of vancomycin and saline wash and inspected for hemostasis. Then, the leads were attached to the pulse generator making sure the pins were in appropriate position, passed set screws , and set screws were all tightened. Pulse generator was then placed in the antibiotic pouch followe d then by being placed in the pocket, making sure the leads were lying flat beneath the device. The incision was closed in a 3-layer fashion with 2-0 Vicryl interrupted suture, followed by 3-0 Vicryl i nterrupted suture, followed by 4-0 Monocryl running stitch and Dermabond was applied followed by Telf a and Tegaderm dressing. While I was closing, the nurse pulled the TVP out of the femoral groin under fluoroscopic guidance to make sure that it did not disrupt any of our permanent pacing leads. EQUIPMENT: 1. Pulse generator is a Medtronic [place] XT DR VALERIA Mcgovern [id number], serial number [id number]. 2. TYRX pouch, reference [id number], lot number [id number]. 3. Right atrial lead, Medtronic 5076-52 cm, serial number [id number]. 4. Left bundle lead, Medtronic 3830-69 cm, serial number [id number]. INTRAOPERATIVE FINDINGS: 1. Right atrial lead, P waves 1.8 millivolts, impedance 721 ohms, threshold 0.6 volts at 0.4 millise conds. 2. Left bundle lead, no R waves. The patient is dependent. Impedance 908 ohms, threshold 0.4 volts at 0.4 milliseconds. FINAL MEASUREMENTS THROUGH THE DEVICE. 1. Right atrial lead, P waves 1.8 millivolts, impedance 551 ohms, threshold 0.75 volts at 0.4 millis econds. 2. Left bundle lead, impedance 817 ohms, threshold 0.5 volts at 0.4 milliseconds. FINAL PARAMETERS: DDDR 60/130. Right atrial amplitude 3.5 volts, pulse width 0.4 milliseconds, sens itivity 0.3 millivolts. Left bundle lead amplitude 3.5 volts, pulse width 0.4 milliseconds, sensitiv ity 1.2 millivolts. IMPRESSION: Successful dual chamber rate responsive permanent pacemaker under fluoroscopic guidance secondary to complete heart block. PLAN: Monitor the patient post-procedure. A 12-lead ECG, chest x-ray. We will check the device komal orrow. She will be admitted to the floor. She is not allowed to lift the left elbow or left shoulde r for 1 month. She cannot lift more than 10 pounds with left arm for 2 weeks. She is to keep the dr marks on and dry until her wound check next week. Job ID: [id number]
== END 2022-03-31 12:14 | disposition home or self-care (01) | DRG 243 ==
LOC: ED 11:50 → CC 12:42 → 2S 12:42 → SUATTDRO 14:25 → 2S 14:25